=== PATIENT | female | born 1940 | race Caucasian/White ===

== ENCOUNTER 2019-07-08 14:40 | Inpatient (IN) | payer OTHER ==
[2019-07-08 16:00] LABS: Absolute Lymphocytes (CBC) 7.4 K/uL (0.7-4.9); Lymphocytes % 56.9 % (15.3-44.8); MPV 7.7 fL (7.6-11.3); RBC Red Blood Cell Count 4.64 M/uL (3.86-4.86)
--- NOTE | 2019-07-08 16:05 | RAD REPORT ---
EXAM DESCRIPTION: RAD - Chest Pa And Lat (2 Views) - 07/08/2019 3:58 pm CLINICAL HISTORY: pyelonephritis, tachycardia Chest pain. COMPARISON: CHEST PA AND LAT 2 VIEW dated 05/02/2014; CHEST PA AND LAT 2 VIEW dated 05/22/2009; CHEST PA AND LAT 2 VIEW dated 03/18/2008 FINDINGS: The lungs are clear. The heart is normal in size. No displaced fractures. IMPRESSION: No acute finding suspected.
--- NOTE | 2019-07-08 16:08 | RAD REPORT ---
EXAM DESCRIPTION: CT - Stone Protocol - 07/08/2019 3:50 pm CLINICAL HISTORY: Flank pain. CT SCAN Abdomen, without contrast. COMPARISON: No comparisons TECHNIQUE: Axial images were obtained without oral or IV contrast. Lack of contrast limits solid org an and vascular assessment. The [id number] spans the entirety of the system partially obscuring uppermost abdomen and lung bases. Coronal reformatted images were obtained and reviewed. All CT scans are performed using dose optimization technique as appropriate and may include automated exposure control or mA/KV adjustment according to patient size. FINDINGS: The lower lung dunn are clear. Fatty liver. Small axial hiatal hernia.Splenic size is normal. The pancreas and adrenal glands are no rmal. No pathologic lymphadenopathy in the abdomen or pelvis. No urinary tract stones or obstructive uropathy. Right kidney appears prominent in size without hydro nephrosis. No bowel obstruction, free air, free fluid or abscess. The appendix is not identified as a discrete s tructure, however, no secondary findings of appendicitis are identified. Scattered colonic diverticul osis. No diverticulitis. No significant bony abnormality. IMPRESSION: No urinary tract stones or obstructive uropathy. Prominent right renal size could indicate inflammation/infection. Fatty liver.
[2019-07-08 16:16] LABS: Albumin 3.7 g/dL (3.4-5.0); Bilirubin Total 0.3 mg/dL (0.2-1.0); Magnesium 2.2 mg/dL (1.8-2.4); Potassium 4.1 mmol/L (3.5-5.1); Protein, Total 7.9 g/dL (6.4-8.2)
[2019-07-08] MEDS: CEFTRIAXONE/SWI 1gm 1 GM/10 ML SYR IVP SCH ×2 (17:07→17:10)
[2019-07-08] MEDS: NA CHLORIDE 0.9% 1,000 ML IV SCH (17:08)
[2019-07-08 17:19] LABS: Urine Appearance CLOUDY; Urine Bilirubin NEGATIVE (NEG); Urine Blood NEGATIVE (NEG); Urine Color ORANGE; Urine Glucose NEGATIVE (NEG); Urine Protein TRACE (NEG); Urine pH 5.5 (5.0-7.0)
[2019-07-08 17:44] VITALS: BMI 34.4
[2019-07-08 17:44] LABS: Urine Bacteria 20-50 /HPF (<20); Urine Culture Reflex Order NOT NEEDED; Urine RBC <5 /HPF (NONE SEEN)
[2019-07-08] MEDS ORDERED: ALPRAZOLAM 1 MG TABLET PO PRN (18:44)
[2019-07-08] MEDS ORDERED: GLUCAGON 1 MG/VIAL IM PRN (19:56)
[2019-07-08] MEDS ORDERED: D50W 25 GM/50 ML SYRINGE/VIAL IV PRN (19:56)
[2019-07-08] MEDS ORDERED: CALCIUM CARBONATE 750 MG PO PRN (19:57)
[2019-07-08] MEDS: PANTOPRAZOLE 40MG TABLET PO SCH (20:26)
[2019-07-08] MEDS: ALPRAZOLAM 1 MG PO SCH (21:00)
[2019-07-08] MEDS: CARVEDILOL 6.25 MG PO SCH (21:00)
[2019-07-08] MEDS: INSULIN -REGULAR HUMAN 50 UNIT/0.5 ML ML SQ SCH (21:00)
[2019-07-08] MEDS: PRESERVISION AREDS PO SCH (21:00)
[2019-07-08] MEDS: DULOXETINE HCL 60 MG PO SCH (21:00)
--- NOTE | 2019-07-08 21:31 | HP ---
Date of Admission: 07/08/2019 Chief Complaint: Urinary tract infection. History Of Present Illness: This is a 78-year-old pleasant female patient who called my office today and subsequently was seen with following complaints. Patient reported that for approximately last 1 month or more, she is having urinary frequency or urgency, some pain with urination. Over period of time, her urine has gotten more and more cloudy and now it is thick and very cloudy looking with a s young odor to it. Denies any blood in urine. No prior history of kidney stone. Lately, she is havi ng problem with pain in the right posterior flank, having chills, feels very weak tired and dizzy whe n she gets up and walks around for about last 2-3 days. Also couple days ago, she almost fell down b ecause she was feeling very weak when she was walking. There was no fall no injury. After I evaluat ed her, decision was made to admit her to hospital. Allergies: NO KNOWN ALLERGIES. Medications: Alprazolam 1 mg daily, amlodipine 5 mg daily, atorvastatin 10 mg daily, Caltrate plus D 1 tablet 2 times a day, carvedilol 6.25 mg 2 times a day, duloxetine 60 mg p.o. 2 times a day, losar diego 25 mg daily, Janumet XR 100/1000 mg 1 tablet daily with evening meal, omeprazole 40 mg daily. Review of Systems: Constitutional: As mentioned above, significant for chills, fatigue, malaise and weakness. GI: Significant for abdominal pain. Genitourinary: Significant for burning sensation with urination, frequency, urgency odor and back pa in. Neurology: Significant for dizziness. All other systems reviewed and negative. Past Medical History: Significant for hypertension, hyperlipidemia, type 2 diabetes mellitus, gastro esophageal reflux disease, diverticulosis, depression. Past Surgical History: Gastric band placement, cholecystectomy, appendectomy, tubal ligation, carpal tunnel release surgery, knee surgery. Family History: Father had throat cancer. Mother, rheumatoid arthritis, coronary artery disease. Social History: Negative for smoking, alcohol use. Physical Examination: Vital Signs: At office today, blood pressure 138/87, pulse 106, respiratory rate 16, temperature 97. 4. Weight 201.2 pounds, height 64 inches. General: Awake, alert, oriented, not in distress. HEENT: Head atraumatic, normocephalic. Conjunctivae nonerythematous. Sclerae white. Mouth, no thr ush or edema noted. Ears/Nose, no mass, lesion, discharge noted. Neck: Supple. No JVD, lymph nodes, bruit, thyromegaly noted. Lungs: Bilateral good equal air entry. Clear to auscultation. No rhonchi. No rales. Heart: Normal heart sounds, no murmur or gallop. Abdomen: Has some right-sided mid anterior abdominal tenderness, otherwise abdomen soft. Bowel soun ds normoactive. No guarding, rigidity, distention. No hepatosplenomegaly. No bruit. Extremities: No leg edema. No calf tenderness. Skin: No rash, ulcer, cellulitis. Lymphatics: No lymph node enlargement in neck, supraclavicular, infraclavicular region. Neuro: No focal neurological deficit. Chest: Unremarkable. External Genitalia: Deferred. Rectal: Deferred. Laboratory Data: White count 13.1, hemoglobin 13.8, platelets 253. Urinalysis, positive for nitrite 3+, leukocyte esterase 20-50, wbc bacteria 20-50. Sodium 138, potassium 4.1, chloride 101, bicarb 3 1, BUN 14, creatinine 0.86, glucose 209. Liver function tests unremarkable. Lactic acid level 1.6. Procalcitonin less than 0.05. Chest x-ray shows no acute cardiopulmonary changes noted. CAT scan o f abdomen and pelvis done per kidney stone protocol shows no evidence of kidney stone or obstructive uropathy. Prominent right-sided renal size could indicate inflammation or infection. Presence of fa tty liver disease. Impression: 1.Acute pyelonephritis. 2.Hypertension. 3.Hyperlipidemia. 4.Diabetes mellitus, type 2. 5.Gastroesophageal reflux disease. 6.Diverticulosis. 7.Depression. Plan: Admit patient to hospital for further evaluation and management of this problem. Patient is a ppropriate for inpatient and is expected to spend 2 midnights in hospital. We will continue home med ications per order. Blood culture, urine culture was done. We will start empiric antibiotics. We w ill go ahead and put on regular diet with sliding scale insulin for diabetes control. I will see her tomorrow for followup and we will continue current empiric antibiotic depending on her urine culture results. We will decide about culture specific antibiotics. Home medications will be continued per order. KHAI/GABRIEL Voice ID: [id number]
[2019-07-09] MEDS ORDERED: ACETAMINOPHEN 500 MG TAB PO PRN (00:48)
[2019-07-09] MEDS: NA CHLORIDE 0.9% 1,000 ML IV SCH ×2 (01:14→08:16)
[2019-07-09] MEDS: PANTOPRAZOLE 40MG TABLET PO SCH (06:23)
[2019-07-09] MEDS: INSULIN -REGULAR HUMAN 50 UNIT/0.5 ML ML SQ SCH ×4 (07:30→21:00)
[2019-07-09] MEDS ORDERED: METFORMIN HCL PO SCH ×2 (08:00→17:00)
[2019-07-09] MEDS ORDERED: SITAGLIPTIN PHOS PO SCH ×2 (08:00→17:00)
[2019-07-09] MEDS: CEFTRIAXONE/SWI 1gm 1 GM/10 ML SYR IVP SCH ×2 (08:16→21:29)
[2019-07-09] MEDS: CARVEDILOL 6.25 MG PO SCH ×2 (09:25→21:30)
[2019-07-09] MEDS: PRESERVISION AREDS PO SCH ×2 (09:25→21:30)
[2019-07-09] MEDS: AMLODIPINE 5 MG PO SCH (09:26)
[2019-07-09] MEDS: LOSARTAN POTASSIUM 25 MG PO SCH (09:26)
[2019-07-09] MEDS: DULOXETINE HCL 60 MG PO SCH ×2 (09:26→21:31)
--- NOTE | 2019-07-09 11:22 | PN ---
Date of Progress Note: 07/09/2019 Subjective: Patient was seen this morning for followup. She was sitting at bedside, feeling much be tter, happy, smiling. Denies any flank pain. No complaints reported overnight and states that her u rine still is cloudy, but overall much better than before as she reports. Objective: Vital Signs: Reviewed. HEENT: Unremarkable. Lungs: Clear to auscultation. Heart: Sounds normal. Abdomen: Soft. Bowel sounds normal. No guarding, rigidity, tenderness, or distention. Extremities: No leg edema. Impression: 1.Acute pyelonephritis. 2.Type 2 diabetes mellitus. 3.Hypertension. Plan: We will continue current IV antibiotics. Urine culture is growing gram-negative rods. Defini te identification and sensitivity pending. Blood culture negative so far. We will hopefully get fin nd urine culture report tomorrow and then we can make a decision about discharge, when to go home wit h culture specific antibiotics. KHAI/MODL Voice ID: [id number] Report ID: [id number]
--- NOTE | 2019-07-09 14:39 | EKG ---
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
[2019-07-09] MEDS ORDERED: ENOXAPARIN 40 MG/0.4 ML SQ SCH (17:00)
[2019-07-09] MEDS ORDERED: [UNRECOGNIZED DRUG - OTHER] PO SCH (17:00)
[2019-07-09] MEDS ORDERED: ATORVASTATIN 10 MG TAB PO SCH (21:00)
[2019-07-09] MEDS: ALPRAZOLAM 1 MG PO SCH (21:29)
[2019-07-10] MEDS: PANTOPRAZOLE 40MG TABLET PO SCH (06:03)
[2019-07-10 06:22] LABS: Absolute Lymphocytes (CBC) 5.2 K/uL (0.7-4.9); Basophils % 0.4 % (0-1.3); Hematocrit 38.5 % (36.0-45.0); Lymphocytes % 53.9 % (15.3-44.8); MPV 7.5 fL (7.6-11.3)
[2019-07-10 06:42] VITALS: O2SAT 93
[2019-07-10 07:15] LABS: Magnesium 2.2 mg/dL (1.8-2.4)
[2019-07-10 07:27] LABS: Blood Morphology Comment NOT SEEN (NOT SEEN); Platelet Estimate ADEQ
[2019-07-10] MEDS: INSULIN -REGULAR HUMAN 50 UNIT/0.5 ML ML SQ SCH (07:30)
[2019-07-10] MEDS: CARVEDILOL 6.25 MG PO SCH (08:43)
[2019-07-10] MEDS: CEFTRIAXONE/SWI 1gm 1 GM/10 ML SYR IVP SCH (08:43)
[2019-07-10] MEDS: DULOXETINE HCL 60 MG PO SCH (08:44)
[2019-07-10] MEDS: PRESERVISION AREDS PO SCH (08:45)
[2019-07-10] MEDS: AMLODIPINE 5 MG PO SCH (08:46)
[2019-07-10] MEDS: LOSARTAN POTASSIUM 25 MG PO SCH (08:46)
[2019-07-10 09:19] VITALS: BP 144/65; TEMP 98.3
--- NOTE | 2019-07-10 13:30 | DS ---
Date of Discharge: 07/10/2019 Disposition: Patient was discharged to go home. Physical Examination: HEENT: Unremarkable. Lungs: Clear to auscultation. Heart: Sounds normal. Abdomen: Soft. Bowel sounds normal. No guarding, rigidity, tenderness, distention. Extremities: No leg edema. Laboratory Data: Upon admission, white count 13.1, hemoglobin 13.8, platelets 253. Repeat white cou nt today 9.6, hemoglobin 12.8, platelets 203. Last chemistry today; sodium 141, potassium 4, chlorid e 107, bicarb 27, BUN 10, creatinine 0.70, glucose 172, hemoglobin A1c 8.2, and she is aware of uncon trolled diabetes. Urine culture is growing E coli. Hospital Course: A 78-year-old pleasant female patient, admitted to the hospital with urinary tract infection problem. Please see dictated H and P for more information. The patient was evaluated at t office. She was admitted to the hospital with acute pyelonephritis problem. Please see dictated H and P for more information. Patient was admitted to the hospital. IV antibiotic and IV fluid were started. She was started on IV Rocephin. Home medications were continued. Urine culture results c quan back today indicating she was growing E coli sensitive to multiple antibiotics including ceftriax one that she was on and multiple other IV and oral antibiotics. Symptomatically, patient is doing we ll. Her cloudy urine has resolved most of the time and flank pain also has improved. Patient will b e discharged to go home in stable condition. Final Diagnoses: 1.Acute pyelonephritis. 2.Hypertension. 3.Hyperlipidemia. 4.Diabetes mellitus, type 2, with hyperglycemia. 5.Gastroesophageal reflux disease. 6.Diverticulosis. 7.Depression. Discharge Medication And Instructions: 1.Continue all prior home medications. 2.Bactrim DS 1 tablet by mouth 2 times a day for 10 days. 3.Follow up with my office next week on , which is 07/15/2019. KHAI/MODL Voice ID: [id number] Report ID: [id number]
== END 2019-07-10 11:41 | disposition home or self-care (01) | DRG 690 ==
LOC: 2ND 14:40
PROVIDERS: ADMIT Internal Medicine; ATTEND Internal Medicine
DX: N10 Acute pyelonephritis (principal); B96.20 Unspecified Escherichia coli [E. coli] as the cause of diseases classified elsewhere; I10 Essential (primary) hypertension; E78.5 Hyperlipidemia, unspecified; E11.65 Type 2 diabetes mellitus with hyperglycemia; K21.9 Gastro-esophageal reflux disease without esophagitis; F32.9 Major depressive disorder, single episode, unspecified; K57.90 Diverticulosis of intestine, part unspecified, without perforation or abscess without bleeding; Z79.899 Other long term (current) drug therapy; Z90.49 Acquired absence of other specified parts of digestive tract; Z98.51 Tubal ligation status; Z98.84 Bariatric surgery status
CPT/HCPCS: 36415; 71046; 74176; 76377; 80048; 80053; 81001; 82947; 83036; 83605; 83735; 84145; 85025; 87040; 87077; 87086; 87088; 87186; 93005; J0696; J1650; J7030

== ENCOUNTER 2021-04-11 10:19 | Emergency (ER) | payer OTHER ==
--- OUTSIDE RECORDS SUMMARY | 2021-04-11 10:24 | XMS REPORT | Continuity of Care Document ---
:1940 Author Organization [facility] Address [address] [place] [address] [address] [place] [address] Care Team Providers Name Role Phone Yan_W Attending Clinician Unavailable Abel_W Admitting Clinician Unavailable Payers Payer Name Policy Type Policy Number Effective Date Expiration Date [employer] (MEDICARE [id number] 2013 REPLACEMENT PPO) 00:00:00 Problems This patient has no known problems. Allergies, Adverse Reactions, Alerts This patient has no known allergies or adverse reactions. Social History Smoking Status Start Date Stop Date Source Never Smoker [facility] Medications Ordered Filled Start Stop Current Ordering Indication Dosage Frequency Signature Comments Components Source Medication Medication Date Date Medication? Clinician (SIG) Name Name glipizide glipizide No glipizide [facility] ER 2.5 mg ER 2.5 mg ER 2.5 mg da tablet, tablet, tablet, Medica l extended extended extended Amanda up release 24 release 24 release 24 hr TAKE 1 hr TAKE 1 hr TAKE 1 TABLET BY TABLET BY TABLET BY MOUTH EVERY MOUTH EVERY MOUTH DAY WITH DAY WITH EVERY DAY BREAKFAST BREAKFAST WITH BREAKFAST Janumet XR Janumet XR No Janumet XR [facility] 100 100 100 da mg-1,000 mg mg-1,000 mg mg-1,000 Medical tablet,exte tablet,exte mg G roup nded nded tablet,ext release release ended TAKE 1 TAKE 1 release TABLET BY TABLET BY TAKE 1 MOUTH DAILY MOUTH DAILY TABLET BY IN EVENING IN EVENING MOUTH WITH MEAL WITH MEAL DAILY IN EVENING WITH MEAL losartan 25 losartan 25 No losartan [facility] mg tablet mg tablet 25 mg da TAKE 1 TAKE 1 tablet Medical TABLET BY TABLET BY TAKE 1 Amanda up MOUTH EVERY MOUTH EVERY TABLET BY DAY DAY MOUTH EVERY DAY alprazolam alprazolam No alprazolam [facility] 1 mg tablet 1 mg tablet 1 mg d a TAKE 1 TAKE 1 tablet Medical TABLET BY TABLET BY TAKE 1 Amanda up MOUTH TWICE MOUTH TWICE TABLET BY A DAY A DAY MOUTH NEEDED FOR NEEDED FOR TWICE A ANXIETY ANXIETY DAY NEEDED FOR ANXIETY amlodipine amlodipine No amlodipine [facility] 5 mg tablet 5 mg tablet 5 mg d a TAKE 1 TAKE 1 tablet Medical TABLET BY TABLET BY TAKE 1 Amanda up MOUTH EVERY MOUTH EVERY TABLET BY DAY DAY MOUTH EVERY DAY atorvastati atorvastati No atorvastat [facility] n 10 mg n 10 mg in 10 mg da tablet TAKE tablet TAKE tablet Medical 1 TABLET BY 1 TABLET BY TAKE 1 Group MOUTH EVERY MOUTH EVERY TABLET BY DAY DAY MOUTH EVERY DAY carvedilol carvedilol No carvedilol [facility] 12.5 mg 12.5 mg 12.5 mg da tablet TAKE tablet TAKE tablet Medical 1 TABLET BY 1 TABLET BY TAKE 1 Group MOUTH TWICE MOUTH TWICE TABLET BY A DAY A DAY MOUTH TWICE A DAY duloxetine duloxetine No duloxetine [facility] 60 mg 60 mg 60 mg da capsule,del capsule,del capsule,de Medical ayed ayed layed Group release release release TAKE 1 TAKE 1 TAKE 1 CAPSULE BY CAPSULE BY CAPSULE BY MOUTH TWICE MOUTH TWICE MOUTH A DAY A DAY TWICE A DAY Vital Signs Vital Name Observation Time Observation Value Comments Source BP Diastolic 2020-05-30 00:00:00 95 mm[Hg] [facility] Height 2020-05-30 00:00:00 64 [in_i] [facility] BMI (Body Mass 2020-05-30 00:00:00 36.2 kg/m2 [facility] business segment manager Medical Index) Group BP Systolic 2020-05-30 00:00:00 171 mm[Hg] [facility] Body Weight 2020-05-30 00:00:00 210.8 [lb_av] [facility] Procedures Procedure Date / Time Performing Clinician Source Performed Repair of Meniscus [facility] Bilateral Tubal Ligation [facility] Hysterectomy [facility] Removal of Gastric Band [facility] Laparoscopic Adjustable [facility] Plan of Care Planned Activity Planned Date Details Comments Source Future Appointment 2021-05-30 Reid Roman, [facility] 13:15:00 [facility]; Group [address], [place] [address] Encounters Start End Encounter Admission Attending Care Care Encounter Source Date/Time Date/Time Type Type Clinicians Facility Department ID 2020-05-31 2020-05-31 Outpatient Abel_W [facility] [id number] [facility] 09:45:00 09:45:00 0224 [facility] 2020-05-30 2020-05-30 Outpatient Yan_W [facility] [id number] [facility] 05:01:00 05:01:00 0223 [facility] 2020-05-30 2020-05-30 Reid Roman [facility] [place] - [id number] [facility] 00:00:00 00:00:00 MD: Félix Manriquez [facility] [address], [facility] [place] [facility] [place] [address] [place] Ph. 2020-05-26 2020-05-26 Outpatient Abel_W [facility] [id number] [place] 12:31:00 12:31:00 0219 [facility] 2020-05-26 2020-05-26 Outpatient Yan_W [facility] [id number] [facility] 12:31:00 12:31:00 022 [facility] Results This patient has no known results.
[2021-04-11 11:08] LABS: Absolute Lymphocytes (CBC) 8.6 K/uL (0.7-4.9); Lymphocytes % 56.2 % (15.3-44.8); MPV 7.7 fL (7.6-11.3); RBC Red Blood Cell Count 4.84 M/uL (3.86-4.86)
[2021-04-11] MEDS ORDERED: ONDANSETRON 4 MG/2 ML VIAL ONE (11:12)
[2021-04-11] MEDS ORDERED: NA CHLORIDE 0.9% 1,000 ML ONE ×2 (11:12→12:30)
[2021-04-11] MEDS ORDERED: LORazepam 2 MG/ML VIAL ONE (11:12)
[2021-04-11 11:26] LABS: Magnesium 1.9 mg/dL (1.8-2.4)
[2021-04-11 12:07] LABS: Blood Morphology Comment NOT SEEN (NOT SEEN); Platelet Estimate ADEQ
[2021-04-11] MEDS ORDERED: DIAZEPAM 10 MG/2 ML INJ SYRINGE ONE (12:30)
[2021-04-11 12:43] LABS: SARS-COV-2 RT PCR NEGATIVE (NEGATIVE)
--- NOTE | 2021-04-11 13:48 | EDPHYS ---
Physician Documentation [facility] Name: Alice Viera Age: 80 yrs Sex: Female : 1940 Arrival Date: 04/11/2021 Time: 10:20 Bed 6 Private MD: ED Physician Kwadwo Brumfield HPI: 04/11 10:52 This 80 yrs old Female presents to ER via Wheelchair with complaints of Numbness, High rn Blood Pressure, nausea. 10:53 The patient presents to the emergency department with nausea, vomiting, diarrhea. rn Onset: The symptoms/episode began/occurred 5 day(s) ago. Possible causes: Missed doses of Xanax. The symptoms are aggravated by food , The symptoms are alleviated by nothing. Associated signs and symptoms: Pertinent positives: diarrhea, nausea, vomiting, Pertinent negatives: fever, GI bleeding. Severity of symptoms: At their worst the symptoms were moderate in the emergency department the symptoms are unchanged. The patient has not experienced similar symptoms in the past. The patient has not recently seen a physician. Patient and daughter report generalized weakness, anxiety, nausea/vomiting/diarrhea for 5 days. Reports was under more stress lately over the holidays and ended up taking extra of her Xanax leading her to run out early. Ran out of Xanax 6 or 7 days ago and symptoms began shortly after that. Symptoms slowly getting worse. Patient reports feels anxious and having trouble sleeping. Reports high blood pressure. Reports numbness and tingling all over her body. Cannot get a refill until the ninth.. Historical: - Allergies: 10:43 No Known Allergies; jd3 - PMHx: 10:43 CLL; Diabetes mellitus; jd3 - PSHx: 10:43 stomach banding and unbanding; tubal ligation; Total abdominal hysterectomy; jd3 - Immunization history:: Adult Immunizations up to date, Client reports receiving the 2nd dose of the Covid vaccine, Flu vaccine is up to date. - Social history:: Smoking status: Patient denies any tobacco usage or history of. - Family history:: not pertinent. - Hospitalizations: : No recent hospitalization is reported. ROS: 10:53 Constitutional: Negative for fever, chills, and weight loss, Eyes: Negative for injury, rn pain, redness, and discharge, Neck: Negative for injury, pain, and swelling, Cardiovascular: Positive for palpitations Respiratory: Negative for shortness of breath, cough, wheezing, and pleuritic chest pain, Abdomen/GI: Positive for nausea/vomiting/diarrhea MS/Extremity: Negative for injury and deformity, Skin: Negative for injury, rash, and discoloration, Neuro: Positive for generalized numbness and tingling, negative for focal weakness, negative for headache Exam: 10:53 Constitutional: This is a well developed, well nourished patient who is awake, alert, rn anxious Head/Face: Normocephalic, atraumatic. Eyes: Periorbital areas with no swelling, redness, or edema. ENT: Dry mucous membranes, positive for tongue fasciculations Cardiovascular: Tachycardic, regular Respiratory: Mild tachypnea, speaking full sentences Abdomen/GI: Soft, non-tender Skin: Warm, dry, no cellulitis MS/ Extremity: Pulses equal, no cyanosis. Neurovascular intact. Full, normal range of motion. Equal circumference. Neuro: Awake and alert, GCS 15, oriented to person, place, time, and situation. Cranial nerves II-XII grossly intact. Motor strength 5/5 in all extremities. Sensory grossly intact. Cerebellar exam normal. Vital Signs: 10:45 BP 172 / 93; Pulse 113; Resp 20 S; Temp 97.8(TE); Pulse Ox 98% on R/A; Weight 90.72 kg jd3 (R); Height 5 ft. 4 in. (162.56 cm) (R); Pain 0/10; 12:48 BP 151 / 87; Pulse 100; Resp 19 S; Pulse Ox 95% on R/A; jd3 14:29 BP 162 / 74; Pulse 94; Resp 17 S; Pulse Ox 96% on R/A; jd3 10:45 Body Mass Index 34.33 (90.72 kg, 162.56 cm) jd3 MDM: 10:25 Patient medically screened. rn 13:43 Differential diagnosis: viral gastroenteritis, gastroenteritis, benzo withdrawal. Data rn reviewed: vital signs, nurses notes, lab test result(s), EKG, and as a result, I will discharge patient. Counseling: I had a detailed discussion with the patient and/or guardian regarding: the historical points, exam findings, and any diagnostic results supporting the discharge/admit diagnosis, lab results, the need for outpatient follow up, to return to the emergency department if symptoms worsen or persist or if there are any questions or concerns that arise at home. Response to treatment: the patient's symptoms have markedly improved after treatment, the patient's condition has returned to base line, the patient is now symptom free, patient is well hydrated. and as a result, I will discharge patient. Special discussion: I discussed with the patient/guardian in detail that at this point there is no indication for admission to the hospital. It is understood, however, that if the symptoms persist or worsen the patient needs to return immediately for re-evaluation. Based on the history and exam findings, there is no indication for further emergent testing or inpatient evaluation. I discussed with the patient/guardian the need to see the primary care provider for further evaluation of the symptoms. ED course: Patient much better, back to baseline, vitals responded well to fluids and benzos here. No acute findings in blood work or EKG. Symptoms most consistent with benzo withdrawal as symptoms began a day or 2 after cessation and marked improvement after benzo administration here. Can get her refill on the ninth will prescribe once a day Xanax for the next 3 days only. Return precautions given and understood. Patient states feels great and wants to go home.. 04/11 10:36 Order name: CBC with Diff; Complete Time: 13:08 rn 04/11 10:36 Order name: Basic Metabolic Panel; Complete Time: 11:57 rn 04/11 10:36 Order name: Magnesium; Complete Time: 11:57 rn 04/11 10:36 Order name: COVID-19/FLU A+B (Document "Date of Onset" if Symptomatic); Complete Time: rn 13:04/11 10:36 Order name: Procalcitonin; Complete Time: 13:08 rn 04/11 12:07 Order name: Manual Differential; Complete Time: 13:08 EDMS 04/11 10:36 Order name: IV Start; Complete Time: 11:01 rn 04/11 10:36 Order name: EKG; Complete Time: 10:37 rn 04/11 10:36 Order name: EKG - Nurse/Tech; Complete Time: 11:01 rn Administered Medications: 11:17 Drug: Ativan (LORazepam) 1 mg Route: IVP; Site: right antecubital; jd3 12:00 Follow up: Response: No adverse reaction jd3 11:17 Drug: Zofran (Ondansetron) 4 mg Route: IVP; Site: right antecubital; jd3 12:00 Follow up: Response: No adverse reaction jd3 11:17 Drug: NS 0.9% 1000 ml Route: IV; Rate: 1000 ml; Site: right antecubital; jd3 12:00 Follow up: Response: No adverse reaction; IV Status: Completed infusion jd3 12:04 CANCELLED (Duplicate Order): Valium (diazepam) 5 mg IVP once rn 12:37 Drug: NS 0.9% 1000 ml Route: IV; Rate: 1000 ml; Site: right antecubital; jd3 13:30 Follow up: Response: No adverse reaction; IV Status: Completed infusion jd3 12:37 Drug: Valium (diazepam) 2 mg Route: IVP; Site: right antecubital; jd3 13:30 Follow up: Response: No adverse reaction jd3 Disposition Summary: 04/11/21 13:47 Discharge Ordered Location: Home rn Problem: new rn Symptoms: have improved rn Condition: Stable rn Diagnosis - Sedative, hypnotic or anxiolytic dependence with withdrawal, uncomplicated rn - Dehydration rn Followup: rn - With: Private Physician - When: As needed - Reason: Recheck today's complaints, Re-evaluation by your physician Discharge Instructions: - Discharge Summary Sheet rn - Dehydration, Adult rn - Benzodiazepine Withdrawal rn Forms: - Medication Reconciliation Form rn - Thank You Letter rn - Antibiotic clinical nursing intern - Prescription Opioid Use rn Prescriptions: - Xanax 1 mg Oral Tablet - take 2 tablet by ORAL route At bedtime for 3 days; 6 tablet; Refills: 0, rn Product Selection Permitted Signatures: Dispatcher [employer] EDKwadwo Torres MD MD rn Davies, Jonathon, RN RN jd3 Corrections: (The following items were deleted from the chart) 11:14 10:53 Constitutional: This is a well developed, well nourished patient who is awake, rn alert, anxious rn 11:15 10:53 Constitutional: This is a well developed, well nourished patient who is awake, rn alert, anxious Head/Face: Normocephalic, atraumatic. Eyes: Periorbital areas with no swelling, redness, or edema. ENT: Dry mucous membranes Cardiovascular: Tachycardic, regular Respiratory: Mild tachypnea, speaking full sentences Abdomen/GI: Soft, non-tender Skin: Warm, dry, no cellulitis MS/ Extremity: Pulses equal, no cyanosis. Neurovascular intact. Full, normal range of motion. Equal circumference. Neuro: Awake and alert, GCS 15, oriented to person, place, time, and situation. Cranial nerves II-XII grossly intact. Motor strength 5/5 in all extremities. Sensory grossly intact. Cerebellar exam normal. rn 12:04 12:04 Valium (diazepam) 5 mg IVP once ordered. rn rn
--- NOTE | 2021-04-11 13:48 | ER ---
Nurse's Notes [facility] Name: Alice Viera Age: 80 yrs Sex: Female : 1940 Arrival Date: 04/11/2021 Time: 10:20 Bed 6 Private MD: Diagnosis: Sedative, hypnotic or anxiolytic dependence with withdrawal, uncomplicated;Dehydration Presentation: 04/11 10:42 Chief complaint: Patient states: "I have been having nausea and feeling like my feet jd3 and hands are numb since like Friday. I have been out of my Xanax and I think I might just be having withdraws from not renu able to take that medication that I have been on for a very long time.". Coronavirus screen: At this time, the client does not indicate any symptoms associated with coronavirus-19. Ebola Screen: Patient negative for fever greater than or equal to 101.5 degrees Fahrenheit, and additional compatible Ebola Virus Disease symptoms. Initial Sepsis Screen: Does the patient meet any 2 criteria? No. Patient's initial sepsis screen is negative. Does the patient have a suspected source of infection? No. Patient's initial sepsis screen is negative. Risk Assessment: Do you want to hurt yourself or someone else? Patient reports no desire to harm self or others. Onset of symptoms was April 07, 2021. 10:42 Acuity: EARNEST 3 jd3 10:42 Method Of Arrival: Wheelchair jd3 Historical: - Allergies: 10:43 No Known Allergies; jd3 - PMHx: 10:43 CLL; Diabetes mellitus; jd3 - PSHx: 10:43 stomach banding and unbanding; tubal ligation; Total abdominal hysterectomy; jd3 - Immunization history:: Adult Immunizations up to date, Client reports receiving the 2nd dose of the Covid vaccine, Flu vaccine is up to date. - Social history:: Smoking status: Patient denies any tobacco usage or history of. - Family history:: not pertinent. - Hospitalizations: : No recent hospitalization is reported. Screenin:29 Abuse screen: Denies threats or abuse. Nutritional screening: No deficits noted. jd3 Tuberculosis screening: No symptoms or risk factors identified. Fall Risk Gait- Normal/Bed Rest/Wheelchair (0 pts) Mental Status- Oriented to own ability (0 pts). Total Mantilla Fall Scale indicates No Risk (0-24 pts). Assessment: 10:30 General: Appears in no apparent distress. uncomfortable, Behavior is calm, cooperative, jd3 appropriate for age, anxious. Pain: Denies pain. Pain does not radiate. Pain began years ago. pain reported. Neuro: Level of Consciousness is awake, alert, obeys commands, Oriented to person, place, time, situation. Cardiovascular: Denies chest pain, Heart tones present Capillary refill < 3 seconds Patient's skin is warm and dry. Rhythm is irregular. Respiratory: Reports shortness of breath on exertion Airway is patent Respiratory effort is even, unlabored, Respiratory pattern is regular, symmetrical, Breath sounds are clear bilaterally. GI: Abdomen is round non-distended, Abd is soft and non tender X 4 quads. Reports nausea, vomiting. : No signs and/or symptoms were reported regarding the genitourinary system. EENT: No signs and/or symptoms were reported regarding the EENT system. Derm: Skin is intact, Skin is dry, Skin is normal, Skin temperature is warm. Musculoskeletal: Circulation, motion, and sensation intact. Range of motion: intact in all extremities. 11:30 Reassessment: Patient appears in no apparent distress at this time. No changes from jd3 previously documented assessment. Patient and/or family updated on plan of care and expected duration. Pain level reassessed. Patient is alert, oriented x 3, equal unlabored respirations, skin warm/dry/pink. 12:30 Reassessment: Patient appears in no apparent distress at this time. No changes from jd3 previously documented assessment. Patient and/or family updated on plan of care and expected duration. Pain level reassessed. Patient is alert, oriented x 3, equal unlabored respirations, skin warm/dry/pink. 14:29 Reassessment: Patient appears in no apparent distress at this time. Patient and/or [facility] family updated on plan of care and expected duration. Pain level reassessed. Patient is alert, oriented x 3, equal unlabored respirations, skin warm/dry/pink. Patient denies pain at this time. Patient states feeling better. Vital Signs: 10:45 BP 172 / 93; Pulse 113; Resp 20 S; Temp 97.8(TE); Pulse Ox 98% on R/A; Weight 90.72 kg jd3 (R); Height 5 ft. 4 in. (162.56 cm) (R); Pain 0/10; 12:48 BP 151 / 87; Pulse 100; Resp 19 S; Pulse Ox 95% on R/A; jd3 14:29 BP 162 / 74; Pulse 94; Resp 17 S; Pulse Ox 96% on R/A; jd3 10:45 Body Mass Index 34.33 (90.72 kg, 162.56 cm) jd3 ED Course: 10:20 Patient arrived in ED. ds1 10:25 Kwadwo Brumfield MD is Attending Physician. rn 10:38 Israel Price RN is Primary Nurse. jd3 10:43 Triage completed. jd3 10:45 Arm band placed on. jd3 11:30 Inserted saline lock: 20 gauge in right antecubital area, using aseptic technique. jd3 Blood collected. 12:30 Patient maintains SpO2 saturation greater than 95% on room air. jd3 14:29 No provider procedures requiring assistance completed. IV discontinued, intact, jd3 bleeding controlled, No redness/swelling at site. Pressure dressing applied. 14:30 Patient has correct armband on for positive identification. Bed in low position. Call jd3 light in reach. Side rails up X 1. Adult w/ patient. online merchandising specialist on. Pulse ox on. NIBP on. Administered Medications: 11:17 Drug: Ativan (LORazepam) 1 mg Route: IVP; Site: right antecubital; jd3 12:00 Follow up: Response: No adverse reaction jd3 11:17 Drug: Zofran (Ondansetron) 4 mg Route: IVP; Site: right antecubital; jd3 12:00 Follow up: Response: No adverse reaction jd3 11:17 Drug: NS 0.9% 1000 ml Route: IV; Rate: 1000 ml; Site: right antecubital; jd3 12:00 Follow up: Response: No adverse reaction; IV Status: Completed infusion jd3 12:04 CANCELLED (Duplicate Order): Valium (diazepam) 5 mg IVP once rn 12:37 Drug: NS 0.9% 1000 ml Route: IV; Rate: 1000 ml; Site: right antecubital; jd3 13:30 Follow up: Response: No adverse reaction; IV Status: Completed infusion jd3 12:37 Drug: Valium (diazepam) 2 mg Route: IVP; Site: right antecubital; jd3 13:30 Follow up: Response: No adverse reaction jd3 Outcome: 13:47 Discharge ordered by . rn 14:30 Discharged to home ambulatory, via wheelchair, with family. jd3 14:30 Condition: stable 14:30 Discharge instructions given to patient, family, Instructed on discharge instructions, follow up and referral plans. medication usage, Demonstrated understanding of instructions, follow-up care, medications, Prescriptions given X 1. 14:31 Patient left the ED. jd3 Signatures: Leanna Wilson ds1 Kwadwo Brumfield MD MD rn Davies, Jonathon, RN RN jjerad Corrections: (The following items were deleted from the chart) 14:30 12:30 Inserted saline lock: 20 gauge in right antecubital area, using aseptic jd3 technique. Blood collected. jd3
[2021-04-11 14:37] VITALS: TEMP 97.8
[2021-04-11 14:40] VITALS: BP 162/74; O2SAT 96
== END 2021-04-11 14:31 | disposition home or self-care (01) ==
LOC: ER 10:19
DX: F13.20 Sedative, hypnotic or anxiolytic dependence, uncomplicated (principal); F19.20 Other psychoactive substance dependence, uncomplicated; E86.0 Dehydration; Z20.822 Contact with and (suspected) exposure to COVID-19
CPT/HCPCS: 0240U; 36415; 80048; 83735; 84145; 85025; 93005; 96361; 96374; 96375; 99285; J2405; J3360; J7030

== ENCOUNTER 2021-04-13 03:12 | Observation (INO) | payer OTHER ==
--- OUTSIDE RECORDS SUMMARY | 2021-04-13 03:16 | XMS REPORT | Continuity of Care Document ---
:1940 Author Organization [facility] Address [address] [place] [address] [address] [place] [address] Care Team Providers Name Role Phone Yan_W Attending Clinician Unavailable Abel_W Admitting Clinician Unavailable Payers Payer Name Policy Type Policy Number Effective Date Expiration Date [employer] [employer] (MEDICARE [id number] 2013 REPLACEMENT PPO) 00:00:00 Problems This patient has no known problems. Allergies, Adverse Reactions, Alerts This patient has no known allergies or adverse reactions. Social History Smoking Status Start Date Stop Date Source Never Smoker [facility] Medications Ordered Filled Start [...] BMI (Body Mass 2020-05-30 00:00:00 36.2 kg/m2 [facility] chief of service [facility]) Group BP Systolic 2020-05-30 00:00:00 171 mm[Hg] [facility] Body Weight 2020-05-30 00:00:00 210.8 [lb_av] [facility] Procedures Procedure Date / Time Performing Clinician Source Performed Repair of Meniscus [facility] Bilateral Tubal Ligation [facility] Hysterectomy [facility] Removal of Gastric Band [facility] Laparoscopic Adjustable [facility] Plan of Care Planned Activity Planned Date Details Comments Source Future Appointment 2021-05-30 Reid Roman, [facility]00 [facility]; Group [address], [place] [address] Encounters Start End Encounter Admission Attending Care Care Encounter Source Date/Time Date/Time Type Type Clinicians Facility Department ID 2020-05-31 2020-05-31 Outpatient Abel_W [facility] [id number] [facility] 09:45:00 09:45:00 0224 [facility] 2020-05-30 2020-05-30 Outpatient Yan_W [facility] [id number] [facility] 05:01:00 05:01:00 0223 [facility] 2020-05-30 2020-05-30 Reid Roman [facility] [place] - [id number] [facility] 00:00:00 00:00:00 MD: Félix Manriquez [facility] [address], [facility], [facility] [facility] [place] [address] , Ph. 2020-05-26 2020-05-26 Outpatient Abel_W [facility] [id number] [place] 12:31:00 12:31:00 0219 [facility] 2020-05-26 2020-05-26 Outpatient Yan_W [facility] [id number] [place] 12:31:00 12:31:00 022 [facility] Results This patient has no known results.
[2021-04-13] MEDS ORDERED: dexAMETHasone 4 MG/ML VIAL ONE ×2 (04:42→09:11)
[2021-04-13 05:44] LABS: Urine Blood Negative (Negative); Urine Glucose Negative (Negative); Urine Protein Negative (Negative); Urine Specific Gravity <=1.005 (1.005-1.030); Urine pH 5.5 (5.0-7.0)
[2021-04-13] MEDS ORDERED: NA CHLORIDE 0.9% 1,000 ML ONE ×2 (05:46→16:34)
[2021-04-13 05:57] LABS: Absolute Lymphocytes (CBC) 9.2 K/uL (0.7-4.9); Hematocrit 38.2 % (36.0-45.0); Lymphocytes % 64.1 % (15.3-44.8); MPV 7.7 fL (7.6-11.3); RBC Red Blood Cell Count 4.16 M/uL (3.86-4.86)
[2021-04-13 06:04] LABS: Protime INR 0.95
[2021-04-13 06:10] LABS: ALT/SGPT 35 U/L (12-78); AST/SGOT 25 U/L (15-37); Albumin 3.5 g/dL (3.4-5.0); Alkaline Phosphatase 55 U/L (45-117); BUN Blood Urea Nitrogen 10 mg/dL (7-18); Bicarbonate 28 mmol/L (21-32); Bilirubin Direct < 0.1 mg/dL (0-0.2); Bilirubin Total 0.4 mg/dL (0.2-1.0); Glucose Level 169 mg/dL (74-106); NT PRO-BNP 133 pg/mL (<450); Potassium 3.7 mmol/L (3.5-5.1); Protein, Total 7.1 g/dL (6.4-8.2); Sodium Level 138 mmol/L (136-145); Troponin (Emerg Dept Use Only) < 0.02 ng/mL (0.0-0.045)
[2021-04-13 06:19] LABS: SARS-COV-2 RT PCR NEGATIVE (NEGATIVE)
--- NOTE | 2021-04-13 06:39 | ER ---
Nurse's Notes [facility] Name: Alice Viera Age: 80 yrs Sex: Female : 1940 Arrival Date: 04/13/2021 Time: 03:18 Bed 16 Private MD: Diagnosis: Angioedema. Urinary tract infection Presentation: 04/13 03:35 Chief complaint: Patient's son or daughter states: Friday we came in and Dr. Brumfield vc1 saw her for Xanax withdrawel, (she has been on Xanax for 30 years) during the holiday she took too many and ran out. Dr. Brumfield gave her a prescription to last until 04/15 . She woke up tonight extremely emotional and feeling like her throat is swollen. Coronavirus screen: Vaccine status: Patient reports receiving the 2nd dose of the covid vaccine. Moderna. Ebola Screen: No symptoms or risks identified at this time. Initial Sepsis Screen: Does the patient meet any 2 criteria? No. Patient's initial sepsis screen is negative. Does the patient have a suspected source of infection? No. Patient's initial sepsis screen is negative. Risk Assessment: Do you want to hurt yourself or someone else? Patient reports no desire to harm self or others. Onset of symptoms was April 13, 2021. 03:35 Method Of Arrival: Ambulatory vc1 03:35 Acuity: EARNEST 3 vc1 Triage Assessment: 03:47 General: Appears distressed, Behavior is anxious, crying, inappropriate for age. Pain: vc1 Denies pain. Historical: - Allergies: 04:10 No Known Allergies; vc1 - PMHx: 03:46 CLL; diabetes mellitus; Anxiety; vc1 - PSHx: 03:46 stomach banding and unbanding; Total abdominal hysterectomy; tubal ligation; vc1 - Immunization history:: Adult Immunizations up to date, Client reports receiving the 2nd dose of the Covid vaccine, Moderna. - Social history:: Smoking status: Patient denies any tobacco usage or history of. Screenin:47 Abuse screen: Denies threats or abuse. Nutritional screening: No deficits noted. vc1 Tuberculosis screening: No symptoms or risk factors identified. Fall Risk None identified. Assessment: 04:08 General: Appears in no apparent distress. Behavior is cooperative, anxious. Pain: ic1 Denies pain. Neuro: No deficits noted. Cardiovascular: No deficits noted. Respiratory: No deficits noted. GI: No deficits noted. : No deficits noted. EENT: No deficits noted. Derm: No deficits noted. Musculoskeletal: No deficits noted. 05:08 Reassessment: Patient appears in no apparent distress at this time. Patient states ic1 feeling better. Vital Signs: 03:35 BP 145 / 83; Pulse 79; Resp 20; vc1 03:35 Temp 97.5; Pulse Ox 97% on R/A; Weight 91.63 kg; Height 5 ft. 4 in. (162.56 cm); vc1 05:07 BP 148 / 76; Pulse 80; Resp 18; Pulse Ox 98% on R/A; ic1 20:40 BP 137 / 84; Pulse 76; Resp 17; Temp 98.5; Pulse Ox 98% on R/A; Pain 2/10; mr2 03:35 Body Mass Index 34.67 (91.63 kg, 162.56 cm) vc1 ED Course: 03:18 Patient arrived in ED. wm 03:45 Triage completed. vc1 03:47 Arm band placed on left wrist. vc1 03:48 Patient has correct armband on for positive identification. vc1 04:06 Memo Banegas MD is Attending Physician. pkl 04:08 Door closed. Noise minimized. ic1 05:43 Strep Sent. ic1 05:43 COVID-19/FLU A+B (Document "Date of Onset" if Symptomatic) Sent. ic1 05:44 Basic Metabolic Panel Sent. ic1 05:44 CBC with Diff Sent. ic1 05:44 LFT's Sent. ic1 05:44 Magnesium Sent. ic1 05:44 NT PRO-BNP Sent. ic1 05:44 PT-INR Sent. ic1 05:44 Troponin (emerg Dept Use Only) Sent. ic1 06:11 XRAY Chest (1 view) In Process Unspecified. EDMS 06:37 Lazaro Ramirez MD is Hospitalizing Provider. pkl 07:27 Cintia Smith, BOONE is Primary Nurse. eo2 09:57 No provider procedures requiring assistance completed. eo2 19:08 Primary Nurse role handed off by Cintia Smith, BOONE eb 20:24 Nicola Frank, BOONE is Primary Nurse. mr2 21:34 Patient admitted, IV remains in place. mr2 Administered Medications: 04:43 Drug: Decadron - Dexamethasone 10 mg Route: IVP; Site: right antecubital; ic1 09:27 Follow up: Response: No adverse reaction eo2 05:50 Drug: NS 0.9% 1000 ml Route: IV; Rate: 100 ml/hr; Site: left antecubital; ic1 Outcome: 06:38 Decision to Hospitalize by Provider. pkl 21:34 Admitted to Med/surg accompanied by nurse. mr2 21:34 Condition: stable 21:34 Instructed on the need for admit. 22:24 Patient left the ED. bb Signatures: Dispatcher [employer] EDMS Memo Banegas MD MD pkl Sharlene Hannon RN RN bb Crystal Mckeon Wendy wm Reynard, Mike, RN RN mr2 Cintia Smith RN RN eo2 Nina Gilmore RN RN ic1 Minda Cary RN RN vc1
--- NOTE | 2021-04-13 06:39 | EDPHYS ---
Physician Documentation [facility] Name: Alice Viera Age: 80 yrs Sex: Female : 1940 Arrival Date: 04/13/2021 Time: 03:18 Bed 16 Private MD: ED Physician Memo Banegas HPI: 04/13 04:34 This 80 yrs old Female presents to ER via Ambulatory with complaints of Anxiety, pkl Possible Xanax Withdrawal. 04:34 The patient presents with localized swelling, throat. Onset: The symptoms/episode pkl began/occurred just prior to arrival. Patient said she woke up tonight and felt like her throat is swollen. Historical: - Allergies: 04:10 No Known Allergies; vc1 - PMHx: 03:46 CLL; diabetes mellitus; Anxiety; vc1 - PSHx: 03:46 stomach banding and unbanding; Total abdominal hysterectomy; tubal ligation; vc1 - Immunization history:: Adult Immunizations up to date, Client reports receiving the 2nd dose of the Covid vaccine, Moderna. - Social history:: Smoking status: Patient denies any tobacco usage or history of. ROS: 04:34 Eyes: Negative for injury, pain, redness, and discharge. pkl 04:34 ENT: Positive for swelling at the throat. 04:34 Neck: Negative for stiffness. 04:34 Cardiovascular: Negative for chest pain. 04:34 Respiratory: Negative for cough, shortness of breath. 04:34 Abdomen/GI: Negative for abdominal pain, nausea, vomiting, and diarrhea. 04:34 Back: Negative for acute changes. 04:34 : Negative for urinary symptoms. 04:34 MS/extremity: Negative for acute changes. 04:34 Skin: Negative for rash. 04:34 Neuro: Negative for altered mental status, loss of consciousness. 04:34 Psych: Positive for anxiety. Exam: 04:34 Head/Face: Normocephalic, atraumatic. Eyes: Pupils equal round and reactive to light, pkl extra-ocular motions intact. Lids and lashes normal. Conjunctiva and sclera are non-icteric and not injected. Cornea within normal limits. Periorbital areas with no swelling, redness, or edema. 04:34 ENT: Posterior pharynx: swelling, that is mild. 04:34 Neck: Exam negative for nuchal rigidity. 04:34 Chest/axilla: Exam negative for acute changes. 04:34 Cardiovascular: Rate: normal, Rhythm: regular. 04:34 Respiratory: the patient does not display signs of respiratory distress, Respirations: normal, Breath sounds: are clear throughout. 04:34 Abdomen/GI: Exam negative for acute changes. 04:34 Back: Exam negative for acute changes. 04:34 : Exam negative for acute changes. 04:34 Musculoskeletal/extremity: Exam is negative for acute changes. 04:34 Skin: Exam negative for rash. 04:34 Neuro: Orientation: is normal, Mentation: is normal, Memory: is normal, Cranial nerves: grossly normal, Cerebellar function: is grossly normal, Motor: is normal, Sensation: is normal, Gait: is steady. Vital Signs: 03:35 BP 145 / 83; Pulse 79; Resp 20; vc1 03:35 Temp 97.5; Pulse Ox 97% on R/A; Weight 91.63 kg; Height 5 ft. 4 in. (162.56 cm); vc1 05:07 BP 148 / 76; Pulse 80; Resp 18; Pulse Ox 98% on R/A; ic1 20:40 BP 137 / 84; Pulse 76; Resp 17; Temp 98.5; Pulse Ox 98% on R/A; Pain 2/10; mr2 03:35 Body Mass Index 34.67 (91.63 kg, 162.56 cm) vc1 MDM: 04:06 Patient medically screened. pkl 06:36 Data reviewed: vital signs, nurses notes, lab test result(s), EKG, radiologic studies, pkl CT scan, plain films. ED course: Talked to Dr. Ramirez, admit. 04/13 05:26 Order name: Basic Metabolic Panel; Complete Time: 06:18 pkl 04/13 05:26 Order name: CBC with Diff pkl 04/13 05:26 Order name: LFT's; Complete Time: 06:18 pkl 04/13 05:26 Order name: Magnesium; Complete Time: 06:18 pkl 04/13 05:26 Order name: NT PRO-BNP; Complete Time: 06:18 pkl 04/13 05:26 Order name: PT-INR; Complete Time: 06:18 pkl 04/13 05:26 Order name: Troponin (emerg Dept Use Only); Complete Time: 06:18 pkl 04/13 05:26 Order name: Strep; Complete Time: 06:18 pkl 04/13 05:26 Order name: COVID-19/FLU A+B (Document "Date of Onset" if Symptomatic); Complete Time: pkl 06:30 04/13 05:44 Order name: Urine Dipstick-Ancillary; Complete Time: 06:18 EDMS 04/13 05:58 Order name: Throat Culture EDMS 04/13 06:35 Order name: Urine Culture pkl 04/13 06:35 Order name: Urine Microscopic Only pkl 04/13 06:47 Order name: Manual Differential EDMS 04/13 04:32 Order name: Saline Lock; Complete Time: 04:39 pkl 04/13 05:26 Order name: XRAY Chest (1 view) pkl 04/13 05:26 Order name: EKG; Complete Time: 05:27 pkl 04/13 06:36 Order name: CT Neck Angio pkl 04/13 06:49 Order name: Clear Liquid EDMS 04/13 06:49 Order name: Basic Metabolic Panel EDMS 04/13 06:49 Order name: Basic Metabolic Panel EDMS 04/13 06:49 Order name: CBC with Automated Diff EDMS 04/13 06:49 Order name: CBC with Automated Diff EDMS 04/13 07:42 Order name: CT EDMS 04/13 12:48 Order name: Glucose, Ancillary Testing EDMS 04/13 16:49 Order name: Glucose, Ancillary Testing EDMS 04/13 16:50 Order name: Glucose, Ancillary Testing EDMS 04/13 20:20 Order name: Glucose, Ancillary Testing EDMS 04/13 05:26 Order name: Cardiac monitoring pkl 04/13 05:26 Order name: EKG - Nurse/Tech pkl 04/13 05:26 Order name: Labs collected and sent; Complete Time: 05:43 pkl 04/13 05:26 Order name: O2 Per Protocol; Complete Time: 05:44 pkl 04/13 05:26 Order name: O2 Sat Monitoring; Complete Time: 05:44 pkl Administered Medications: 04:43 Drug: Decadron - Dexamethasone 10 mg Route: IVP; Site: right antecubital; ic1 09:27 Follow up: Response: No adverse reaction eo2 05:50 Drug: NS 0.9% 1000 ml Route: IV; Rate: 100 ml/hr; Site: left antecubital; ic1 Disposition Summary: 04/13/21 06:38 Hospitalization Ordered Hospitalization Status: Inpatient Admission pkl Provider: Lazaro Ramirez pkl Condition: Stable pkl Problem: new pkl Symptoms: are unchanged pkl Bed/Room Type: Standard pkl Location: Telemetry/MedSurg (Inpatient)(04/13/21 17:45) eb Room Assignment: [facility](04/13/21 17:45) eb Diagnosis - Angioedema. Urinary tract infection pkl Forms: - Medication Reconciliation Form pkl - SBAR form pkl Signatures: Dispatcher [employer] EDMS Memo Banegas MD MD pkl Lulú Mandel RN RN Crystal Smith Iesha, RN RN ic1 Minda Cary RN RN vc1 Cintia Smith RN eo2 Corrections: (The following items were deleted from the chart) 09:13 06:38 Telemetry/MedSurg (Inpatient) pkl ss 09:13 06:38 pkl ss 17:45 09:13 [facility] ER HOLD ss eb 17:45 09:13 ERHOLD- ss eb
[2021-04-13 06:47] LABS: Blood Morphology Comment NOT SEEN (NOT SEEN); Platelet Estimate ADEQ
[2021-04-13] MEDS: NA CHLORIDE 0.9% 1,000 ML IV SCH ×3 (07:00→22:55)
[2021-04-13 07:14] LABS: Urine Bacteria <20 /HPF (<20); Urine RBC <5 /HPF (NONE SEEN)
--- NOTE | 2021-04-13 07:41 | RAD REPORT ---
EXAM DESCRIPTION: CT - Soft Tissue Neck W/Contr - 04/13/2021 7:13 am CLINICAL HISTORY: swelling throat, CLL COMPARISON: Chest Abdomen Pelvis W Cont dated 01/10/2021 TECHNIQUE: During dynamic enhancement using 100 milliliters nonionic IV contrast, axial 5 millimeter thick images of the neck were obtained. All CT scans are performed using dose optimization technique as appropriate and may include automated exposure control or mA/KV adjustment according to patient size. FINDINGS: Intracranial portion the examination is unremarkable. Mastoid air cells are clear. No acut e paranasal sinus finding. Globes and orbital contents show no suspicious findings. No pharyngeal mass or asymmetry of soft tissues identified. There is no enlargement of the tonsillar or tongue base soft tissues. Soft palate, epiglottis and laryngeal structures show no acute or suspic ious findings. Parotid, submandibular and thyroid gland tissues show no emergent or significant finding. There is a 15 millimeter left thyroid nodule. This is not likely of a long-term significance but can be further evaluated as clinical findings warrant. No acute bone or vascular finding. Patient has small bilateral cervical lymph nodes largest measuring 13 x 10 mm. Most are subcentimeter in size. There is no bulky lymphadenopathy or suspicious mass lesion identifiable. Exam extended to the subcarinal region of the chest. There are small mediastinal lymph nodes seen. A right paratracheal lymph node at the aortic arch level measuring 20 x 13 mm is the largest. This is n ot a full examination of the chest. IMPRESSION: Small bilateral cervical lymph nodes are present largest measuring 13 x 10 mm. Most lymp h nodes are sub centimeter. No tonsillar or tongue base mass. No pharyngeal suspicious finding. Limited imaging extending into the chest shows lymph nodes up to 20 x 13 mm in size.
[2021-04-13] MEDS ORDERED: dexAMETHasone 4 MG/ML VIAL IV SCH (09:00)
--- NOTE | 2021-04-13 09:10 | RAD REPORT ---
EXAM DESCRIPTION: RAD - Chest Single View - 04/13/2021 6:12 am CLINICAL HISTORY: difficulty swallowing COMPARISON: Two view chest 09/27/2020 TECHNIQUE: AP portable chest image was obtained 04/13/2021 6:12 am . FINDINGS: No peripheral mass or consolidation. Lung volumes are reduced compared to the prior study. Interstitial pattern is not outside of normal range for shallow inspiration, body habitus and portab le imaging affects. Heart and vasculature are normal. No measurable pleural effusion and no pneumothorax. No acute bony abnormality seen. No acute aortic findings suspected. IMPRESSION: No acute cardiopulmonary process.
[2021-04-13] MEDS ORDERED: NA CHLORIDE 0.9% 50 ML ONE (09:11)
[2021-04-13] MEDS ORDERED: CEFTRIAXONE 1000 MG/VIAL ONE (09:11)
[2021-04-13] MEDS: CEFTRIAXONE 1,000 MG in NA CHLORIDE 0.9% 50 ML IVPB SCH ×2 (09:40→22:55)
--- NOTE | 2021-04-13 10:04 | EKG ---
Test Date: 2021-04-13 Test Time: 05:56:19 All Source Analyst: ANNMARIE MEASUREMENT RESULTS: Intervals: Rate: 76 AL: 160 QRSD: 80 QT: 400 QTc: 450 [place]: P: 69 AL: 160 QRS: 31 T: 65 INTERPRETIVE STATEMENTS: Normal sinus rhythm Cannot rule out Anterior infarct, age undetermined Abnormal ECG Compared to ECG 04/11/2021 11:05:42 Right-axis deviation no longer present Myocardial infarct finding still present Electronically Signed On 04-13-21 10:03:20 FANCY PACKER by Christian Huynh
[2021-04-13] MEDS ORDERED: GLUCAGON 1 MG/VIAL IM PRN (11:23)
[2021-04-13] MEDS ORDERED: D50W 25 GM/50 ML SYRINGE IV PRN (11:23)
[2021-04-13 12:22] VITALS: BMI 34.7
[2021-04-13] MEDS ORDERED: INSULIN -REGULAR HUMAN 50 UNIT/0.5 ML ML ONE ×2 (13:13→20:18)
[2021-04-13] MEDS: INSULIN -REGULAR HUMAN 50 UNIT/0.5 ML ML SQ SCH ×3 (13:20→20:30)
[2021-04-13] MEDS ORDERED: ENOXAPARIN 40 MG/0.4 ML SQ ONE (16:33)
[2021-04-13] MEDS: dexAMETHasone 4 MG/ML VIAL IV SCH (17:00)
[2021-04-13] MEDS ORDERED: ENOXAPARIN 40 MG/0.4 ML SQ SCH (17:00)
[2021-04-13] MEDS: BUSPIRONE HCL 5 MG TABLET PO SCH ×2 (18:30→22:56)
[2021-04-13 20:48] VITALS: O2SAT 95
[2021-04-13] MEDS ORDERED: ARIPiprazole 5 MG TAB PO SCH (21:00)
[2021-04-14] MEDS: dexAMETHasone 4 MG/ML VIAL IV SCH ×2 (02:39→08:57)
[2021-04-14] MEDS: NA CHLORIDE 0.9% 1,000 ML IV SCH (02:41)
[2021-04-14 06:15] LABS: Absolute Lymphocytes (CBC) 7.3 K/uL (0.7-4.9); Hematocrit 38.1 % (36.0-45.0); Lymphocytes % 45.6 % (15.3-44.8); MPV 7.8 fL (7.6-11.3); RBC Red Blood Cell Count 4.18 M/uL (3.86-4.86)
[2021-04-14 08:33] VITALS: BP 148/73; TEMP 97
[2021-04-14] MEDS: BUSPIRONE HCL 5 MG TABLET PO SCH (08:56)
[2021-04-14] MEDS: INSULIN -REGULAR HUMAN 50 UNIT/0.5 ML ML SQ SCH (08:56)
[2021-04-14] MEDS: CEFTRIAXONE 1,000 MG in NA CHLORIDE 0.9% 50 ML IVPB SCH (08:57)
--- NOTE | 2021-04-14 20:51 | DS ---
Date of Discharge: 04/14/2021 Disposition: Discharged to go home. Physical Examination: HEENT: Unremarkable. Lungs: Clear to auscultation. Heart: Sounds normal. Abdomen: Soft. Bowel sounds normal. No guarding, rigidity, tenderness, or distention. Extremities: No leg edema. Discharge Diagnoses: 1.Angioedema, resolved. 2.Major depression. 3.Anxiety. 4.Hypertension. 5.Hyperlipidemia. 6.Type 2 diabetes mellitus. 7.Gastroesophageal reflux disease. Laboratory Data: Labs yesterday; white count 14.4, hemoglobin 12.6, and platelets 159; today white c ount 16, hemoglobin 12.6, and platelets 179. Yesterday, sodium 138, potassium 3.7, chloride 102, bic arb 28, BUN 10, creatinine 0.79, and glucose 169. Liver function tests unremarkable. Troponin less than 0.02. Today, sodium 139, potassium 4, chloride 107, bicarb 25, BUN 12, creatinine 0.66, and glu cose 201. Her urine culture pending. COVID-19 test negative. Hospital Course: This is a 80-year-old pleasant female patient, admitted to the hospital with angioe ashish problem. Please see dictated H and P for more information. After the patient was evaluated in the emergency room, she was admitted to the hospital. She was also reporting significant problem wit h her major depression and psychiatric consultation was obtained. Please see the consult report for more details. Dr. Padron came by to see her . He has also advised the patient to seek so ct counseling services and the patient told me today that her . I have asked her to come s ee me day after tomorrow, which is on Friday morning at 9 a.m. at my office and at that time, we will go ahead and start the referral process to psychiatrist's office. My plan is to wean off alprazolam completely over a period of time. She has 1 mg alprazolam 3 tablets as her supply on the medication and I have instructed her that she should start to take only half a tablet daily at bedtime and when I see her, I will give her a prescription for 0.25 mg alprazolam, then I will give her instruction a bout how to wean off completely. Discharge Medications And Instructions: 1.Continue prior home medication except change alprazolam 1 mg take half tablet by mouth daily at [facility]. 2.Start following new medications: a.Abilify 5 mg take one tablet by mouth daily at bedtime. b.Buspirone 5 mg take one tablet by mouth three times a day as needed for anxiety. 3.Follow up at my office on 04/16/2021 at 9 a.m. 4.Follow up with Dr. Padron, psychiatrist next week and office will assist her with appointment. KHAI/MODL Voice ID: [id number] Report ID: [id number]
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
== END 2021-04-14 11:45 | disposition home or self-care (01) ==
LOC: ER 03:12 → ERHOLD 06:56 → INTOOBSV 06:56 → 2ND 22:04
PROVIDERS: ADMIT Internal Medicine; ATTEND Internal Medicine
DX: T78.3XXA Angioneurotic edema, initial encounter (principal); F32.9 Major depressive disorder, single episode, unspecified; F41.9 Anxiety disorder, unspecified; C91.10 Chronic lymphocytic leukemia of B-cell type not having achieved remission; I10 Essential (primary) hypertension; E78.5 Hyperlipidemia, unspecified; E11.9 Type 2 diabetes mellitus without complications; K21.9 Gastro-esophageal reflux disease without esophagitis; K57.90 Diverticulosis of intestine, part unspecified, without perforation or abscess without bleeding; Z20.822 Contact with and (suspected) exposure to COVID-19; Z90.49 Acquired absence of other specified parts of digestive tract; Z90.710 Acquired absence of both cervix and uterus; Z80.0 Family history of malignant neoplasm of digestive organs; Z82.49 Family history of ischemic heart disease and other diseases of the circulatory system; Z82.61 Family history of arthritis
CPT/HCPCS: 96361; 93005 ×2; 87070; 87088; 85025 ×3; 87086; 80048 ×3; 36415 ×3; 83735 ×2; 85610; 82947 ×3; 80076; 87081; 84484; 84145; 83880; 0240U ×2; 70491; 71045; 96375; 96374 ×2; 99285 ×2; Q9967; J1100 ×4; J1650; J3360; J7030 ×5; J2405; 81003; 81015; G0378

== ENCOUNTER 2023-04-29 15:56 | Inpatient (IN) | payer OTHER ==
[2023-04-29] MEDS ORDERED: MECLIZINE HCL 12.5 MG TAB ONE (16:13)
[2023-04-29] MEDS ORDERED: ONDANSETRON 4 MG/2 ML VIAL ONE (16:32)
--- NOTE | 2023-04-29 16:33 | RAD REPORT ---
EXAM DESCRIPTION: CT - Head Brain Wo Cont - 04/29/2023 4:26 pm CLINICAL HISTORY: DIZZINESS Headache, drowsiness COMPARISON: No comparisons TECHNIQUE: All CT scans are performed using dose optimization technique as appropriate and may inclu de automated exposure control or mA/KV adjustment according to patient size. FINDINGS: No intracranial hemorrhage, hydrocephalus or extra-axial fluid collection.No areas of brai n edema or evidence of midline shift. Multifocal paranasal sinus thickening. Significant fluid/effusions of both mastoid air cells. The bill varium is intact. IMPRESSION: No acute intracranial abnormality. Complete opacification of both mastoid air cells.
[2023-04-29 16:37] LABS: Absolute Lymphocytes (CBC) 21.3 K/uL (0.7-4.9); Hematocrit 36.7 % (36.0-45.0); Lymphocytes % 82.1 % (15.3-44.8); MCV 92.3 fL (80-100); MPV 7.5 fL (7.6-11.3); Platelets 169 thou/uL (152-406); RBC Red Blood Cell Count 3.97 M/uL (3.86-4.86)
[2023-04-29 16:54] LABS: Albumin 3.4 g/dL (3.4-5.0); Bilirubin Direct 0.1 mg/dL (0-0.2); Bilirubin Indirect, Calculated 0.4 mg/dL (0.2-0.8); Bilirubin Total 0.5 mg/dL (0.2-1.0); Potassium 3.7 mEq/L (3.5-5.1); Protein, Total 8.4 g/dL (6.4-8.2); Troponin High Sensitivity 4.7 pg/mL (<58.9)
--- NOTE | 2023-04-29 17:04 | EDPHYS ---
Physician Documentation [facility] Name: Alice Viera Age: 82 yrs Sex: Female : 1940 Arrival Date: 04/29/2023 Time: 15:56 Bed 17 Private MD: ED Physician Marlon Finch HPI: 04/29 16:25 This 82 yrs old Female presents to ER via Ambulatory with complaints of Ear Pain, sp3 Dizziness. 16:25 82-year-old female with a history of CLL not on current treatment, diabetes, anxiety sp3 now presents to the ED with chief complaint bilateral ear pain, ringing, dizziness and mild headache. Symptoms have been ongoing for the last year off-and-on subsequent to getting COVID-19. Patient has been seeing ENT and today had a follow-up appointment but while in the waiting room developed these ongoing symptoms after which family decided to bring her here for evaluation first. Patient denies any trauma, or other symptoms including neck pain, difficulty swallowing, focal neurological deficit, chest pain, shortness of breath, abdominal pain, back pain, extremity weakness, speech changes, memory loss, fall, travel history, fever, known sick contacts, or any other signs or symptoms on ROS at this time.. Historical: - Allergies: 16:03 No Known Allergies; ll1 - PMHx: 16:03 Anxiety; CLL; diabetes mellitus; ll1 - PSHx: 16:03 stomach banding and unbanding; Total abdominal hysterectomy; tubal ligation; ll1 - Immunization history:: Adult Immunizations up to date. - Social history:: Smoking status: Patient denies any tobacco usage or history of. ROS: 16:26 Constitutional: Negative for fever, chills, and weight loss, Eyes: Negative for injury, sp3 pain, redness, and discharge, Neck: Negative for injury, pain, and swelling, Cardiovascular: Negative for chest pain, palpitations, and edema, Respiratory: Negative for shortness of breath, cough, wheezing, and pleuritic chest pain, Abdomen/GI: Negative for abdominal pain, nausea, vomiting, diarrhea, and constipation, Back: Negative for injury and pain, MS/Extremity: Negative for injury and deformity, Skin: Negative for injury, rash, and discoloration, Psych: Negative for depression, anxiety, suicide ideation, homicidal ideation, and hallucinations, Allergy/Immunology: Negative for hives, rash, and allergies, Endocrine: Negative for neck swelling, polydipsia, polyuria, polyphagia, and marked weight changes, Hematologic/Lymphatic: Negative for swollen nodes, abnormal bleeding, and unusual bruising, 16:26 All other systems are negative, Exam: 16:27 Constitutional: This is a well developed, well nourished patient who is awake, alert, sp3 and in no acute distress. Head/Face: Normocephalic, atraumatic. Eyes: Pupils equal round and reactive to light, extra-ocular motions intact. Lids and lashes normal. Conjunctiva and sclera are non-icteric and not injected. Cornea within normal limits. Periorbital areas with no swelling, redness, or edema. Neck: Trachea midline, no thyromegaly or masses palpated, and no cervical lymphadenopathy. Supple, full range of motion without nuchal rigidity, or vertebral point tenderness. No Meningismus. Chest/axilla: Normal chest wall appearance and motion. Nontender with no deformity. No lesions are appreciated. Cardiovascular: Regular rate and rhythm with a normal S1 and S2. No gallops, murmurs, or rubs. Normal PMI, no JVD. No pulse deficits. Respiratory: Lungs have equal breath sounds bilaterally, clear to auscultation and percussion. No rales, rhonchi or wheezes noted. No increased work of breathing, no retractions or nasal flaring. Abdomen/GI: Soft, non-tender, with normal bowel sounds. No distension or tympany. No guarding or rebound. No evidence of tenderness throughout. Back: No spinal tenderness. No costovertebral tenderness. Full range of motion. Skin: Warm, dry with normal turgor. Normal color with no rashes, no lesions, and no evidence of cellulitis. MS/ Extremity: Pulses equal, no cyanosis. Neurovascular intact. Full, normal range of motion. Psych: Awake, alert, with orientation to person, place and time. Behavior, mood, and affect are within normal limits. 16:27 ENT: Bilateral TM without erythema and with mild fluid noted. Patient's hearing is decreased bilaterally. Patient can ambulate although slightly off balance. Remainder of cranial nerves are normal. Remainder of neurological exam is normal as well including memory and speech.. 16:50 ECG was reviewed by the Attending Physician. EKG demonstrates normal sinus rhythm at 77 sp3 bpm with normal intervals, normal QRS, normal axis, nonspecific diffuse ST/ST changes without evidence of acute ischemia. Vital Signs: 16:04 BP 175 / 83; Pulse 77; Resp 17; Temp 97.1; Pulse Ox 98% ; Weight 75.75 kg; Height 5 ft. ll1 4 in. ; 16:35 BP 182 / 86; Pulse 78; Resp 16 S; Pulse Ox 98% on R/A; bp 17:30 BP 171 / 73; Pulse 76; Resp 16; Pulse Ox 96% ; cp4 18:30 BP 154 / 61; Pulse 75; Resp 16; Pulse Ox 95% ; cp4 19:30 BP 155 / 68; Pulse 73; Resp 18; Pulse Ox 97% ; cp4 16:04 Body Mass Index 28.67 (75.75 kg, 162.56 cm) ll1 MDM: 16:05 Patient medically screened. sp3 16:30 Data reviewed: vital signs, nurses notes, lab test result(s), EKG, radiologic studies. sp3 ED course: 82-year-old female with history of CLL and diabetes now with bilateral ear pain, headache and dizziness. Patient is also nauseated and has had vomiting x 1 in the ED. Differential diagnosis includes bilateral middle ear infection, labyrinthitis, peripheral vertigo, central vertigo, ICH, other intracranial process. Will obtain CT scan of the head, laboratory values and general supportive care. If workup is negative in ED, we will discharge patient on meclizine to follow back up with ENT for which family states they can likely get an appointment tomorrow morning. They were there and the ENT waiting room when they decided to come here. She has been seen multiple times for this at that same specialist office. Disposition pending workup and patient course. Everybody is on board with the plan.. 17:02 ED course: CT confirms bilateral mastoiditis and leukocytosis of 26,000. I spoke to Dr. trevor Martinez from ENT who also agrees on admission recommendation. Will start IV vancomycin and IV Rocephin and obtain blood cultures and admit to internal medicine. Dr. Martinez states that she will be in first thing in the morning to further evaluate. Inpatient team communicated via text message and they confirmed admission.. 04/29 16:06 Order name: Basic Metabolic Panel; Complete Time: 16:58 sp3 01/23 16:06 Order name: CBC with Diff sp3 04/29 16:06 Order name: LFT's; Complete Time: 16:58 sp3 04/29 16:06 Order name: Magnesium; Complete Time: 16:58 sp3 04/29 16:06 Order name: Troponin HS; Complete Time: 16:58 sp3 04/29 16:58 Order name: Blood Culture Adult (2) sp3 04/29 17:45 Order name: Urinalysis w/ reflexes EDMS 04/29 17:45 Order name: Basic Metabolic Panel EDMS 04/29 17:45 Order name: Basic Metabolic Panel EDMS 04/29 17:45 Order name: Basic Metabolic Panel EDMS 04/29 17:45 Order name: Basic Metabolic Panel EDMS 04/29 17:45 Order name: CBC with Automated Diff EDMS 04/29 17:45 Order name: CBC with Automated Diff EDMS 04/29 17:45 Order name: CBC with Automated Diff EDMS 04/29 17:45 Order name: CBC with Automated Diff EDMS 04/29 17:45 Order name: Magnesium EDMS 04/29 17:45 Order name: Magnesium EDMS 04/29 17:45 Order name: Magnesium EDMS 04/29 17:45 Order name: Magnesium EDMS 04/29 18:07 Order name: Vancomycin Level Trough EDMS 04/29 21:12 Order name: Manual Differential EDMS 04/29 23:14 Order name: Glucose, Ancillary Testing EDMS 04/29 16:06 Order name: CT Head Brain wo Cont; Complete Time: 16:42 sp3 04/29 16:06 Order name: EKG; Complete Time: 16:07 sp3 04/29 17:40 Order name: CONS Physician Consult EDMS 04/29 16:06 Order name: EKG - Nurse/Tech; Complete Time: 16:35 sp3 04/29 16:06 Order name: IV Saline Lock; Complete Time: 16:23 sp3 04/29 16:06 Order name: Labs collected and sent; Complete Time: 16:23 sp3 Administered Medications: 16:23 Drug: Meclizine PO 25 mg PO once Route: PO; bp 17:32 Follow up: Response: No adverse reaction cp4 16:35 Drug: Ondansetron IVP 4 mg IVP once; over 2 minutes Route: IVP; Site: right antecubital;bp 17:32 Follow up: Response: No adverse reaction cp4 17:31 Drug: Rocephin IV 1 grams IV at calculated rate once; Given slow IV push per pharmacy cp4 instructions Route: IV; Rate: calculated rate; Site: right antecubital; 17:31 Follow up: Response: No adverse reaction; IV Status: Completed infusion cp4 17:31 Drug: vancoMYCIN IVPB 1 grams IVPB once over 2 hrs Route: IVPB; Infused Over: 2 hrs; cp4 Site: right antecubital; Disposition Summary: 04/29/23 17:04 Hospitalization Ordered Notes: Hospitalization Status: Inpatient Admission sp3 Provider: Humberto Rodas sp3 Condition: Stable sp3 Problem: new sp3 Symptoms: have worsened sp3 Bed/Room Type: Standard sp3 Location: Telemetry/MedSurg (Inpatient)(04/29/23 22:27) pm6 Room Assignment: [facility](04/29/23 22:35) Diagnosis - Acute mastoiditis sp3 Forms: - Medication Reconciliation Form sp3 - SBAR form sp3 - Leadership Thank You Letter sp3 Signatures: Dispatcher [employer] EDMitzi Bañuelos RN RN ph Garcia, Cindy, RN RN Armen Osborne RN RN bp Lewis, Lynsay, RN RN ll1 Marlon Finch MD MD sp3 Dorinda Villanueva cp4 Vira Hook pm6 Corrections: (The following items were deleted from the chart) 18:44 17:04 Telemetry/MedSurg (Inpatient) sp3 ph 18:44 17:04 sp3 ph 22:27 18:44 [facility] ER HOLD ph pm6 22:27 18:44 ERHOLD- ph pm6 22:35 22:27 415 pm6
--- NOTE | 2023-04-29 17:04 | ER ---
Nurse's Notes [facility] Name: Alice Viera Age: 82 yrs Sex: Female : 1940 Arrival Date: 04/29/2023 Time: 15:56 Bed 17 Private MD: Diagnosis: Acute mastoiditis Presentation: 04/29 16:04 Chief complaint: Patient states: Ear pain, B hearing loss for 2+ weeks. Dizziness ll1 started today with nausea. Coronavirus screen: Client denies travel out of the [place] in the last 14 days. At this time, the client does not indicate any symptoms associated with coronavirus-19. Ebola Screen: Patient denies travel to an Ebola-affected area in the 21 days before illness onset. Initial Sepsis Screen: Does the patient meet any 2 criteria? No. Patient's initial sepsis screen is negative. Does the patient have a suspected source of infection? Yes: Other: Ears. Risk Assessment: Do you want to hurt yourself or someone else? Patient reports no desire to harm self or others. Onset of symptoms was April 15, 2023. 16:04 Method Of Arrival: Ambulatory ll1 16:04 Acuity: EARNEST 3 ll1 Triage Assessment: 16:05 General: Appears uncomfortable, Behavior is calm, cooperative, appropriate for age. ll1 Pain: Complains of pain in right ear and left ear Quality of pain is described as aching. Pain: Pain currently is 10 out of 10 on a pain scale. EENT: Reports pain in left ear and right ear. Historical: - Allergies: 16:03 No Known Allergies; ll1 - PMHx: 16:03 Anxiety; CLL; diabetes mellitus; ll1 - PSHx: 16:03 stomach banding and unbanding; Total abdominal hysterectomy; tubal ligation; ll1 - Immunization history:: Adult Immunizations up to date. - Social history:: Smoking status: Patient denies any tobacco usage or history of. Screenin:57 [facility] ED Fall Risk Assessment (Adult) Score/Fall Risk Level 0 - 2 = Low Risk. Abuse bp screen: Denies threats or abuse. Denies injuries from another. Nutritional screening: No deficits noted. Tuberculosis screening: No symptoms or risk factors identified. Assessment: 16:30 General: Appears in no apparent distress. Behavior is calm, cooperative. Pain: bp Complains of pain in left ear and right ear. Neuro: Level of Consciousness is awake, alert, obeys commands, Oriented to person, place, time, situation, Reports dizziness. Cardiovascular: Denies chest pain, Capillary refill < 3 seconds Patient's skin is warm and dry. Respiratory: Respiratory effort is even, unlabored, Respiratory pattern is regular, symmetrical. GI: Pt is actively vomiting bile, Reports nausea. : No deficits noted. No signs and/or symptoms were reported regarding the genitourinary system. EENT: Reports decreased hearing. Derm: Skin is intact. 23:07 Reassessment: report given to BOONE Nixon. ha1 Vital Signs: 16:04 BP 175 / 83; Pulse 77; Resp 17; Temp 97.1; Pulse Ox 98% ; Weight 75.75 kg; Height 5 ft. ll1 4 in. ; 16:35 BP 182 / 86; Pulse 78; Resp 16 S; Pulse Ox 98% on R/A; bp 17:30 BP 171 / 73; Pulse 76; Resp 16; Pulse Ox 96% ; cp4 18:30 BP 154 / 61; Pulse 75; Resp 16; Pulse Ox 95% ; cp4 19:30 BP 155 / 68; Pulse 73; Resp 18; Pulse Ox 97% ; cp4 16:04 Body Mass Index 28.67 (75.75 kg, 162.56 cm) ll1 ED Course: 15:59 Patient arrived in ED. ts1 16:03 Arm band placed on. ll1 16:05 Triage completed. ll1 16:05 Marlon Finch MD is Attending Physician. sp3 16:23 Inserted saline lock: 20 gauge in right antecubital area, using aseptic technique. bp Blood collected. 16:28 CT Head Brain wo Cont In Process Unspecified. EDMS 16:35 EKG done, by ED staff, reviewed by Marlon Finch MD. em1 16:57 Bed in low position. Call light in reach. Side rails up X2. Adult w/ patient. bp 17:03 Humberto Rodas MD is Hospitalizing Provider. sp3 17:04 Dorinda Villanueva is Primary Nurse. cp4 17:17 Blood Culture Adult (2) Sent. cp4 20:16 No provider procedures requiring assistance completed. Patient admitted, IV remains in cp4 place. 20:17 Provided Education on: admission. cp4 Administered Medications: 16:23 Drug: Meclizine PO 25 mg PO once Route: PO; bp 17:32 Follow up: Response: No adverse reaction cp4 16:35 Drug: Ondansetron IVP 4 mg IVP once; over 2 minutes Route: IVP; Site: right antecubital;bp 17:32 Follow up: Response: No adverse reaction cp4 17:31 Drug: Rocephin IV 1 grams IV at calculated rate once; Given slow IV push per pharmacy cp4 instructions Route: IV; Rate: calculated rate; Site: right antecubital; 17:31 Follow up: Response: No adverse reaction; IV Status: Completed infusion cp4 17:31 Drug: vancoMYCIN IVPB 1 grams IVPB once over 2 hrs Route: IVPB; Infused Over: 2 hrs; cp4 Site: right antecubital; Medication: 16:57 VIS not applicable for this client. bp Outcome: 17:04 Decision to Hospitalize by Provider. sp3 20:16 Admitted to ER Hold. Please see [facility] for further documentation. cp4 20:16 Condition: stable 20:16 Instructed on follow up and referral plans. the need for admit, 04/30 00:14 Admitted to Tele accompanied by nurse, via wheelchair, room 407, with chart, ha1 Condition: stable Instructed on the need for admit, Demonstrated understanding of instructions, 00:14 Patient left the ED. ha1 Signatures: Dispatcher [employer] Robbin Mcrae em1 Armen Osborne RN RN bp Lewis, Lynsay, RN RN ll1 Marlon Finch MD MD sp3 Grecia Luna RN RN ha1 Rubina Vitale PAS PAS 1 Dorinda Villanueva cp4
[2023-04-29] MEDS ORDERED: VANCOMYCIN 1 GM/VIAL ONE ×2 (17:18→20:44)
[2023-04-29] MEDS ORDERED: CEFTRIAXONE 1000 MG/VIAL ONE (17:18)
[2023-04-29] MEDS ORDERED: NA CHLORIDE 0.9% 250 ML ONE ×2 (17:19→20:45)
[2023-04-29] MEDS ORDERED: ALPRAZOLAM 0.25 MG TABLET PO PRN (17:40)
[2023-04-29] MEDS ORDERED: ONDANSETRON 4 MG/2 ML VIAL IV PRN (17:40)
[2023-04-29] MEDS ORDERED: ACETAMINOPHEN 500 MG TAB PO PRN (17:40)
[2023-04-29] MEDS ORDERED: NA CHLORIDE 0.9% 1,000 ML IV SCH (18:00)
--- NOTE | 2023-04-29 18:43 | P.HP ---
Certification for Inpatient Patient admitted to: Inpatient With expected LOS: <2 Midnights Practitioner: I am a practitioner with admitting privileges, knowledge of patient current condition, hospital course, and medical plan of care. Services: Services provided to patient in accordance with Admission requirements found in Title 42 Section 412.3 of the Code of Federal Regulations Patient History Date of Service: 04/29/23 Reason for admission: Mastoiditis History of Present Illness: 82-year-old female with a past medical history of CLL, diabetes, anxiety, hypertension, hyperlipidemia, presents to the emergency room with bilateral ear pain, headache. Reports associated dizziness, she reports seeing Dr. Cortes for bilateral ear infections at [facility]. Reports symptoms are progressively getting worse with bilateral hearing loss, bilateral posterior ear pain, worse over the last 2 days. She was referred to the emergency room by Dr. Cortes. Daughter is at bedside and is primary historian, patient denies cough, congestion, chest pain, shortness of breath, confusion, fever. Plan to admit for bilateral mastoiditis for IV antibiotics, with [employer] consultant ENT Dr. Martinez. CT of the head IMPRESSION: No acute intracranial abnormality. Complete opacification of both mastoid air cells. Laboratory evaluation CBC 26.0 left shift 14.6, mild hyponatremia 135, patient was treated with IV vancomycin, ceftriaxone in the emergency room. Allergies No Known Allergies Allergy (Verified 10/04/15 10:56) Home Medications: ALPRAZolam [Alprazolam] 1 tab PO BEDTIME PRN 07/08/19 Amlodipine [Norvasc*] 5 mg PO DAILY 07/08/19 Atorvastatin Calcium [Lipitor*] 10 mg PO BEDTIME 07/08/19 Calcium Carbonate, 750mg 1 tab PO BEDTIME PRN 07/08/19 Duloxetine HCl [Cymbalta] 60 mg PO BID 07/08/19 Losartan Potassium [Cozaar] 25 mg PO DAILY 07/08/19 Vit C/E/Zn/Coppr/Lutein/Zeaxan [Preservision Areds 2 Softgel] 2 each PO BID 05/27 Glipizide [Glipizide Xl] 2.5 mg PO DAILY 04/13/21 - Past Medical/Surgical History Diabetic: Yes -: Hypertension -: Hyperlipidemia -: Anxiety -: Removal of lymph node on right breast -: partial hysterectomy, -: stomach banding -: lymphoma removal porsha breast -: reversal banding -: tubal ligation -: colonoscopy -: egd - Family History Father -: Heart disease, Diabetes, Cancer, Other (see notes) Notes: Cancer of the throat, tongue and prostate Mother -: Other (see notes) Notes: Rheumatoid arthritis - Social History Alcohol use: No CD- Drugs: Yes Caffeine use: Yes Review of Systems per HPI Physical Examination - Physical Exam General: Alert, In no apparent distress, Oriented x3 HEENT: Mucous membr. moist/pink, Other ([place], B) posterior ear tenderness) Neck: 2+ carotid pulse no bruit, JVD not distended Cardiovascular: No edema, Normal pulses Gastrointestinal: Normal bowel sounds, Soft and benign Musculoskeletal: No clubbing, No swelling Integumentary: No rashes, No breakdown Neurological: Normal speech, Normal strength at 5/5 x4 extr - Studies Laboratory Data (last 24 hrs) 04/29/23 04/29/23 16:20 16:20 WBC 26.00 H Hgb 12.3 Hct 36.7 Plt Count 169 Sodium 135 L Potassium 3.7 BUN 8 Creatinine 0.83 Glucose 130 H Magnesium 2.0 Total Bilirubin 0.5 AST 12 L ALT 19 Alkaline Phosphatase 55 Assessment and Plan - Plan Assessment plan Bilateral mastoiditis Dizziness Leukocytosis ENT consult Dr. Martinez IV cefepime, IV vancomycin, as needed analgesics, Antivert, antiemetics, probiotic Fall precaution presents to the emergency room with bilateral ear pain, headache. Reports associated dizziness, she reports seeing Dr. Cortes for bilateral ear infections at [facility]. Reports symptoms are progressively getting worse with bilateral hearing loss, bilateral posterior ear pain, worse over the last [address] of the head IMPRESSION: No acute intracranial abnormality. Complete opacification of both mastoid air cells. Laboratory evaluation CBC 26.0 left shift 14.6 Non-insulin dependent diabetes Accu-Cheks, sliding scale insulin mild hyponatremia Sodium 135, Gentle IV fluids History CLL anxiety Essential hypertension hyperlipidemia Resume home medication Full code DVT Lovenox Diet soft Discharge Plan: Home Plan to discharge in: 48 Hours - Advance Directives Does patient have a Living Will: No Does patient have a Durable POA for Healthcare: No - Code Status/Comfort Care Code Status: Full Code Critical Care: No Time Spent Managing Pts Care (In Minutes): 55
[2023-04-29] MEDS ORDERED: ALPRAZOLAM 1 MG TABLET PO PRN (18:50)
[2023-04-29] MEDS ORDERED: MECLIZINE HCL 12.5 MG TAB PO PRN (18:50)
[2023-04-29] MEDS ORDERED: GLUCAGON 1 MG/VIAL IM PRN (18:55)
[2023-04-29] MEDS ORDERED: D50W 25 GM/50 ML SYRINGE IV PRN (18:55)
[2023-04-29] MEDS ORDERED: VANCOMYCIN 1 GM in NA CHLORIDE 0.9% 250 ML IVPB ONE ×2 (19:00→20:00)
[2023-04-29] MEDS ORDERED: CALCIUM CARBONATE 500 MG TAB PO PRN (19:38)
[2023-04-29] MEDS ORDERED: NA CHLORIDE 0.9% 1,000 ML ONE (20:45)
[2023-04-29] MEDS ORDERED: DULOXETINE 30 MG CAP PO SCH (21:00)
[2023-04-29] MEDS ORDERED: ATORVASTATIN 10 MG TAB PO SCH (21:00)
[2023-04-29] MEDS ORDERED: CEFEPIME 2 GM in NA CHLORIDE 0.9% 100 ML IV SCH (21:00)
[2023-04-29] MEDS ORDERED: INSULIN REGULAR (HUMAN) 100 UNIT/ML SQ SCH (21:00)
[2023-04-29 21:12] LABS: Blood Morphology Comment NOT SEEN (NOT SEEN); Platelet Estimate ADEQ
[2023-04-29 21:33] VITALS: BMI 28.6
[2023-04-29] MEDS ORDERED: HYDROMORPHONE HCL 0.5 MG/0.5 ML INJ ONE (22:09)
[2023-04-29] MEDS ORDERED: CEFEPIME 2 GM VIAL ONE (22:09)
[2023-04-29] MEDS ORDERED: ATORVASTATIN 10 MG TAB ONE (22:10)
[2023-04-29] MEDS: HYDROMORPHONE HCL 0.5 MG/0.5 ML INJ IV PRN (22:10)
[2023-04-29] MEDS ORDERED: NA CHLORIDE 0.9% 100 ML ONE (22:10)
[2023-04-29] MEDS ORDERED: DULOXETINE 30 MG CAP PO ONE (22:10)
[2023-04-30] MEDS: HYDROMORPHONE HCL 0.5 MG/0.5 ML INJ IV PRN (03:00)
[2023-04-30] MEDS ORDERED: D50W 25 GM/50 ML SYRINGE IV PRN (07:23)
[2023-04-30] MEDS ORDERED: GLUCAGON 1 MG/VIAL IM PRN (07:23)
[2023-04-30] MEDS ORDERED: ONDANSETRON 4 MG/2 ML VIAL IV PRN ×2 (07:26→09:08)
[2023-04-30] MEDS: INSULIN REGULAR (HUMAN) 100 UNIT/ML SQ SCH ×4 (07:30→21:00)
[2023-04-30] MEDS ORDERED: D10W 125 ML IV PRN (07:34)
[2023-04-30] MEDS ORDERED: VANCOMYCIN 1 GM in NA CHLORIDE 0.9% 250 ML IVPB SCH (08:00)
[2023-04-30] MEDS: ENOXAPARIN 40 MG/0.4 ML SQ SCH (08:18)
[2023-04-30] MEDS: CEFTRIAXONE 1,000 MG in NA CHLORIDE 0.9% 50 ML IVPB SCH ×2 (08:18→21:19)
[2023-04-30] MEDS ORDERED: LOSARTAN POTASSIUM 50 MG TABLET PO SCH (09:00)
[2023-04-30] MEDS ORDERED: AMLODIPINE 5 MG TAB PO SCH (09:00)
[2023-04-30] MEDS: MORPHINE 2 MG/ML SYR IV PRN ×4 (09:23→21:18)
--- NOTE | 2023-04-30 11:45 | RAD REPORT ---
EXAM DESCRIPTION: MRI - Brain Wo Cont - 04/30/2023 11:26 am CLINICAL HISTORY: Headache/mastoiditis COMPARISON: Head CT April 29, 2023 TECHNIQUE: Axial, sagittal, and coronal magnetic resonance images of the brain were obtained. FINDINGS: No significant abnormal signal within the brain Diffusion-weighted/ADC mapping does not reveal evidence of acute infarction. The ventricles are normal caliber. An extra-axial fluid collection is not noted. Mild chronic sinusitis Both mastoids are completely opacified. This has developed since 2021 IMPRESSION: Complete opacification of the mastoids may indicate mastoiditis. No acute intracranial abnormality noted
[2023-04-30] MEDS ORDERED: VANCOMYCIN 1.25 GM in NA CHLORIDE 0.9% 250 ML IVPB SCH (17:00)
[2023-04-30] MEDS: VANCOMYCIN 1.25 GM in NA CHLORIDE 0.9% 250 ML IVPB SCH (17:04)
--- NOTE | 2023-04-30 17:25 | EKG ---
Test Date: 2023-04-29 Test Time: 16:33:05 Rooming House Keeper: MEASUREMENT RESULTS: Intervals: Rate: 77 IL: 150 QRSD: 76 QT: 396 QTc: 448 [place]: P: 66 IL: 150 QRS: 6 T: 44 INTERPRETIVE STATEMENTS: Normal sinus rhythm Cannot rule out Anterior infarct, age undetermined Abnormal ECG Compared to ECG 04/13/2021 20:59:45 No significant changes Electronically Signed On 04-30-23 17:23:12 [employer]CH MACHINE INSPECTOR by Jarrod Cesar
[2023-04-30] MEDS ORDERED: carvediloL 25 MG TAB PO ONE (19:03)
--- NOTE | 2023-04-30 19:06 | CON ---
Date of Consultation: 04/30/2023 Chief Complaint: Bilateral ear and mastoid pain. History Of Present Illness: The patient is a pleasant 82-year-old female with past medical history of CLL, diabetes, anxiety, hypertension, hyperlipidemia, who presented to emergency room on 04/29/2023 with bilateral ear pain and headache. She has been seen in outpatient setting in our office by the TUB MENDER, on April 09, 2023, for acute serous otitis media involving the right ear, rhinitis medicamentosa, acute nasopharyngitis. She was on Ciprodex otic drops and was told to stop and she was placed on fluticasone nasal spray, and unfortunately serous otitis media developed into an acute otitis media infection and she had an appointment on 04/29/[address] Cortes, but she canceled it and instead went to the emergency room. She was subsequently admitted and placed on Rocephin and vancomycin IV for bilateral acute mastoiditis. Upon arrival at the bedside, the patient states that she does not hear anything and that I have to translate through the daughter due to her decreased hearing. She also has associated disequilibrium and bilateral otalgia extending to bilateral temporal bones, moderate to severe, which occurred approximately 2 days ago. Currently, she denies intranasal congestion, cough, shortness of breath, chest pain, neck stiffness, confusion, or fever. She does not have a prior history of ear infections, although her granddaughter has a history of bilateral chronic otitis media. She also denies tinnitus today. No other complaints. Past Medical History And Past Surgical History: Hypertension, hyperlipidemia, anxiety, partial hysterectomy, gastric band, right breast lymph node removal, lymphoma removal of bilateral breasts, reversal of gastric band, tubal ligation, colonoscopy, EGD. Home Medications: Alprazolam, amlodipine, atorvastatin, calcium carbonate, duloxetine, losartan, potassium, multivitamins, glipizide. Social History: Denies alcohol, tobacco, or illicit drugs. She does use caffeine. Allergies: NO KNOWN DRUG ALLERGIES. Review of Systems: General: Positive for dizziness. Negative for confusion, disorientation. Head: Positive for bilateral temporal bone pain, moderate to severe. Eyes: Negative for blurred or double vision or drainage. Ears: Positive for severe bilateral hearing loss, otalgia, negative for tenderness. Nose: Negative for rhinorrhea, nasal congestion, postnasal drip. Throat: Negative for throat pain, odynophagia, dysphagia. Neck: Negative for neck mass, lymph node enlargement, thyroid enlargement. Physical Examination: General: The patient is awake, alert, oriented, no apparent distress. She is oriented x3. Head: Atraumatic, normocephalic with moderate tenderness to percussion over the bilateral temporal bones. Ears: Bilateral external auditory canals patent. Tympanic membranes are intact, but bulging and there is evidence of thick mucoid effusion involving the middle ear with dull tympanic membrane light reflex. Ossicles appear intact. Nose: Bilateral nasal cavities are patent. Midline septum. No rhinorrhea or postnasal drip. Throat: Moist oral mucosa. Midline uvula. No exudate or edema or erythema. Neck: Supple. Trachea midline. No thyromegaly or lymphadenopathy palpated. Laboratory Data: CT scan of the head without contrast revealed diffuse complete opacification of bilateral temporal bones/mastoid cavities, but no evidence of coalescence or abscess. Bilateral middle ear ossicles appear intact with no erosion. There is a middle ear effusion located in the middle ear cavity. In addition, there is incidental findings of bilateral ethmoid sinus effusion extending into the bilateral frontal recesses. Laboratory data from 04/29/2023 demonstrates leukocytosis of 26.00 with predominantly lymphocytes, neutrophil count is normal. This may suggest a viral etiology. Diagnoses: 1. Bilateral acute mastoiditis. 2. Bilateral acute otitis media. 3. Disequilibrium. 4. Leukocytosis. Recommendations: 1. Continue IV vancomycin and Rocephin as prescribed. 2. May take antiemetics and Antivert p.r.n. disequilibrium. 3. Recommend setting up for bilateral myringotomy with grommet insertion. Per the literature, it is recommended that she be on IV antibiotics for approximately 48 hours before tube insertion. She is scheduled for 05/02/2023, at noon. 4. The patient needs to be n.p.o. after 6 a.m. on day of surgery. JOSEFINA/GABRIEL Voice ID: [id number] Report ID: [id number] WADE
[2023-04-30] MEDS: TRAZODONE 50 MG TABLET PO SCH (21:19)
[2023-05-01] MEDS: MORPHINE 2 MG/ML SYR IV PRN ×4 (03:12→19:16)
[2023-05-01] MEDS: INSULIN REGULAR (HUMAN) 100 UNIT/ML SQ SCH ×4 (07:30→20:51)
--- NOTE | 2023-05-01 07:33 | HP ---
Date of Admission: 04/29/2023 Chief Complaint: Fever, chills, and cannot hear. History Of Present Illness: This is an 82-year-old very pleasant female patient who came to see me a bout a month ago on March 20, 2023, with almost 2 weeks' history of impaired hearing, worse in the right ear than the left ear. She did not have any pain in the ear or behind her ear at that time. She had sore throat to start with, and her sore throat problem had gone away. The patient had wax in her both ears, and she had otitis media of the right ear and she was prescribed amoxicillin. Since that time, her ear has not felt better and she has been seeing Dr. Cortes and has received different prescription medications. Her hearing has continuously gotten worse to the extent that last few day s now she is having pain behind each ear over the mastoid bone area, and she started to have fever an d chills yesterday, so she came into emergency room. After she was evaluated in the ER, she was admi tted to the hospital with bilateral mastoiditis. In the emergency room, she had informed ER staff th at I was her physician and unfortunately she was still ended up getting admitted to Hospitalist team, and I did not find out about this until this morning when I came to the hospital and when I saw her name, I did take over her care this morning. Allergies: TO RYBELSUS, CAUSING THROAT CLOSING TYPE OF FEELING. Medications: Atorvastatin 10 mg daily, buspirone 5 mg 3 times a day as needed for anxiety, duloxetin e 20 mg daily, carvedilol 25 mg 2 times a day, losartan/HCTZ 50/12.5 one tablet daily, Janumet 100 mg /1000 mg one tablet daily in the evening, omeprazole 40 mg daily, trazodone 50 mg daily at bedtime. Review of Systems: ENT: As mentioned above. Constitutional: As mentioned above. All other systems reviewed and negative. Past Medical History: Significant for type 2 diabetes mellitus, hypertension, hyperlipidemia, CLL, g astroesophageal reflux disease, diverticulosis, anxiety, depression. Past Surgical History: Significant for cholecystectomy, appendectomy, gastric band placement, tubal ligation, carpal tunnel surgery, and arthroscopic knee surgery. Family History: Father , had throat cancer. Mother , had coronary artery disease and rheuma toid arthritis. Social History: Negative for smoking and alcohol use. Physical Examination: Vital Signs: This morning, temperature 97.5, pulse 81, respiratory rate 18, blood pressure 148/85, o xygen saturation 90%. Height 5 feet 4 inches, weight 167 pounds. General: Awake, alert, oriented, not in distress. HEENT: Head atraumatic, normocephalic. Conjunctivae nonerythematous. Sclerae white. Mouth, no thr ush or edema noted. Ears/Nose: The patient has extreme difficulty hearing to the extent that she al most cannot hear anything we tell her and I communicated with her by writing things. She does have m ild tenderness over bilateral mastoid bone area. Neck: Supple. No JVD, lymph nodes, bruit, thyromegaly noted. Lungs: Bilateral good equal air entry. Clear to auscultation. No rhonchi. No rales. Heart: Normal heart sounds, no murmur or gallop. Abdomen: Soft, bowel sounds normal. No guarding, rigidity, tenderness, mass, hepatosplenomegaly, dis tention, or bruit noted. Extremities: No leg edema. No calf tenderness. Skin: No rash, ulcer, cellulitis. Lymphatics: No lymph node enlargement in neck, supraclavicular, infraclavicular region. Neuro: No focal neurological deficit. Chest: Unremarkable. External Genitalia: Deferred. Rectal: Deferred. Laboratory Data: White count 26, hemoglobin 12.3, platelets 169. Sodium 135, potassium 3.7, chlorid e 101, bicarb 27, BUN 8, creatinine 0.83, glucose 130. Liver function test unremarkable. CAT scan o f the head negative for any acute intracranial changes and it shows opacification of bilateral mastoi ds. Impression: 1.Acute mastoiditis. 2.Chronic lymphocytic leukemia. 3.Type 2 diabetes mellitus. 4.Hypertension. 5.Hyperlipidemia. 6.Gastroesophageal reflux disease. 7.Diverticulosis. 8.Anxiety. 9.Depression. Plan: We will go ahead and admit the patient to hospital for further evaluation and management of th is problem. The patient is appropriate for inpatient and is expected to spend 2 midnights in the [facility]. She did receive some antibiotics in the emergency room, which were vancomycin and cefepime. We will continue ceftriaxone 1 g IV every 12 hours and vancomycin per order. Consult Pharmacy for va ncomycin dose management. We will consult ENT specialist for this mastoiditis problem. Diabetes amira l be managed with sliding scale insulin while in the hospital. We will go ahead and continue her ant ihypertensive medications, which are carvedilol and losartan/HCT, per order. For anxiety and depress ion, she takes duloxetine, which we will continue that. For hyperlipidemia, she takes atorvastatin a nd we will continue that per order. No need for any further intervention. DVT prophylaxis will be g iven using Lovenox. Plan of treatment discussed with the patient. We will go ahead and get MRI done today for further evaluation of this mastoiditis. KHAI/MODL Voice ID: [id number]
[2023-05-01] MEDS ORDERED: INFLUENZA VACCINE (for 6+ mo) 0.5 ML DOSE IMVAC ONE (08:00)
[2023-05-01] MEDS ORDERED: PNEUMOCOCCAL VACCINE 0.5 ML IMVAC ONE (08:00)
[2023-05-01] MEDS: LOSARTAN/HCTZ 50-12.5 PO SCH (08:44)
[2023-05-01] MEDS: DULOXETINE 20 MG CAP PO SCH (08:44)
[2023-05-01] MEDS: carvediloL 25 MG TAB PO SCH ×2 (08:45→20:50)
[2023-05-01] MEDS: CEFTRIAXONE 1,000 MG in NA CHLORIDE 0.9% 50 ML IVPB SCH ×2 (08:45→20:50)
[2023-05-01] MEDS: ENOXAPARIN 40 MG/0.4 ML SQ SCH (08:46)
[2023-05-01] MEDS: VANCOMYCIN 1.25 GM in NA CHLORIDE 0.9% 250 ML IVPB SCH (17:00)
[2023-05-01] MEDS: VANCOMYCIN 1.5 GM in NA CHLORIDE 0.9% 500 ML IVPB SCH (17:16)
[2023-05-01] MEDS: TRAZODONE 50 MG TABLET PO SCH (20:50)
[2023-05-01] MEDS: JANUMET PO SCH (20:55)
[2023-05-02] MEDS: MORPHINE 2 MG/ML SYR IV PRN (01:44)
[2023-05-02 05:31] LABS: Absolute Lymphocytes (CBC) 16.8 K/uL (0.7-4.9); Hematocrit 31.2 % (36.0-45.0); Lymphocytes % 82.5 % (15.3-44.8); MCV 91.2 fL (80-100); MPV 7.2 fL (7.6-11.3); Platelets 147 thou/uL (152-406); RBC Red Blood Cell Count 3.42 M/uL (3.86-4.86)
[2023-05-02 05:52] LABS: Magnesium 2.2 mg/dL (1.6-2.4); Potassium 3.3 mEq/L (3.5-5.1)
[2023-05-02] MEDS: INSULIN REGULAR (HUMAN) 100 UNIT/ML SQ SCH ×4 (07:30→21:00)
[2023-05-02] MEDS: carvediloL 25 MG TAB PO SCH ×2 (08:22→21:10)
[2023-05-02] MEDS: CEFTRIAXONE 1,000 MG in NA CHLORIDE 0.9% 50 ML IVPB SCH ×2 (08:23→21:11)
[2023-05-02] MEDS: DULOXETINE 20 MG CAP PO SCH (08:23)
[2023-05-02] MEDS: LOSARTAN/HCTZ 50-12.5 PO SCH (08:23)
[2023-05-02] MEDS: ENOXAPARIN 40 MG/0.4 ML SQ SCH (08:24)
[2023-05-02] MEDS ORDERED: POTASSIUM CL SA 10 MEQ TAB PO ONE (09:04)
[2023-05-02] MEDS: D5 0.45 NS 1,000 ML IV SCH (09:12)
--- NOTE | 2023-05-02 11:12 | PN ---
Date of Progress Note: 05/01/2023 Subjective: The patient was seen this morning for followup. No new complaints or problems reported by the patient. She still continues to have problems where she cannot hear anything out of her ears. No nausea, no vomiting. No headache. Objective: Vital Signs: Reviewed. HEENT: Unremarkable. Lungs: Clear to auscultation. Heart: Sounds normal. Abdomen: Soft. Bowel sounds normal. No guarding, rigidity, tenderness, distention. Extremities: No leg edema. Laboratory Data: There were no new labs today. MRI of the brain has shown bilateral mastoiditis. N o acute intracranial changes. Impression: 1.Bilateral mastoiditis. 2.Hypertension. 3.Hyperlipidemia. 4.Type 2 diabetes mellitus. Plan: We will go ahead and continue current IV antibiotic, which is ceftriaxone and vancomycin. Con litoue to follow with ENT specialist, Dr. Martinez. We will continue current antihypertensive medication and Dr. Martinez is planning to do surgery tomorrow. Continue DVT prophylaxis with Lovenox per order. I did call the patient's son who is a physician, Dr. Matt Viera at [phone] as per the patient' s request and details were discussed with him this evening. KHAI/MODL Voice ID: [id number] Report ID: [id number]
[2023-05-02 11:29] LABS: Blood Morphology Comment NOT SEEN (NOT SEEN); Platelet Estimate DECR; Smudge Cells PRESENT
[2023-05-02] MEDS ORDERED: NA CHLORIDE 0.9% 1,000 ML ONE (12:36)
--- NOTE | 2023-05-02 13:18 | PN ---
Date of Progress Note: 05/02/2023 Subjective: The patient was seen this morning for followup. Her daughter was with her at bedside. No headache, but she is still not able to hear anything out of her ears. Physical Examination: Vital Signs: Reviewed this morning, temperature 97.7, pulse 93, respiratory rate 17, blood pressure is elevated at 183/78 with oxygen saturation 97% on room air. HEENT: Unremarkable. Lungs: Clear to auscultation. Heart: Sounds normal. Abdomen: Soft. Bowel sounds normal. No guarding, rigidity, tenderness, distention. Extremities: No leg edema. Laboratory Data: White count 20.4, hemoglobin 10.7, platelets 147. Sodium 138, potassium 3.3, chlor roberta 102, bicarb 31, BUN 4, creatinine 0.58, glucose 135. Magnesium 2.2. Vancomycin trough level yes terday was 7.7. Impression: 1.Acute mastoiditis, bilateral. 2.Hypokalemia. 3.Hypertension. 4.Hyperlipidemia. 5.Type 2 diabetes mellitus. Plan: We will go ahead and continue current medication. Continue current antibiotics. Replace pota ssium per electrolyte replacement protocol. Start maintenance IV fluid since the patient is n.p.o. a nd will have surgery this afternoon and details and plan of treatment discussed with the patient and her daughter. I will see her tomorrow for followup. KHAI/MODL Voice ID: [id number] Report ID: [id number]
[2023-05-02] MEDS ORDERED: OFLOXACIN OPH 0.3%-5 ML BTL ONE (13:22)
[2023-05-02] MEDS ORDERED: OXYMETAZOLINE HCL 0.05% 15ML NAS ONE (13:23)
[2023-05-02] MEDS ORDERED: ACETAMINOPHEN 500 MG TAB ONE (13:57)
[2023-05-02] MEDS ORDERED: LIDOCAINE 1% MPF 5 ML VIAL ONE (13:59)
[2023-05-02] MEDS ORDERED: propofoL 200 MG/20 ML VIAL IV ONE (13:59)
[2023-05-02] MEDS ORDERED: ONDANSETRON 4 MG/2 ML VIAL ONE (13:59)
[2023-05-02] MEDS ORDERED: EPHEDRINE SULF 50 MG/ML VIAL ONE (14:45)
[2023-05-02] MEDS: VANCOMYCIN 1.5 GM in NA CHLORIDE 0.9% 500 ML IVPB SCH (16:21)
[2023-05-02] MEDS: OFLOXACIN OPH 0.3%-5 ML BTL OTIC SCH ×2 (21:00→21:11)
[2023-05-02] MEDS: JANUMET PO SCH (21:00)
[2023-05-02] MEDS: TRAZODONE 50 MG TABLET PO SCH (21:10)
[2023-05-03] MEDS: D5 0.45 NS 1,000 ML IV SCH (05:08)
[2023-05-03 06:59] LABS: Potassium 3.6 mEq/L (3.5-5.1)
[2023-05-03] MEDS: INSULIN REGULAR (HUMAN) 100 UNIT/ML SQ SCH ×4 (07:30→20:03)
[2023-05-03] MEDS: CEFTRIAXONE 1,000 MG in NA CHLORIDE 0.9% 50 ML IVPB SCH ×2 (08:18→20:03)
[2023-05-03] MEDS: DULOXETINE 20 MG CAP PO SCH (08:18)
[2023-05-03] MEDS: carvediloL 25 MG TAB PO SCH ×2 (08:19→20:02)
[2023-05-03] MEDS: LOSARTAN/HCTZ 50-12.5 PO SCH (08:19)
[2023-05-03] MEDS: ENOXAPARIN 40 MG/0.4 ML SQ SCH (08:19)
[2023-05-03] MEDS: OFLOXACIN OPH 0.3%-5 ML BTL OTIC SCH ×2 (08:20→20:03)
[2023-05-03] MEDS: ACETAMINOPHEN 500 MG TAB PO PRN (08:31)
[2023-05-03] MEDS ORDERED: POTASSIUM CL SA 10 MEQ TAB PO ONE (09:00)
--- NOTE | 2023-05-03 11:17 | OP ---
Date of Procedure: 05/02/2023 Surgeon: LOVELY KAPOOR Preoperative Diagnosis: Bilateral acute mastoiditis. Postoperative Diagnosis: Bilateral acute mastoiditis. Procedure: Bilateral myringotomy with tympanostomy tube insertion. Anesthesia: General mask anesthesia was administered. Estimated Blood Loss: Less than 5 mL. Specimens: None. Findings: Bilateral inflamed tympanic membranes with bulging and decreased light reflex, mucoid midd le ear effusion involving the left middle ear cavity with intact ossicles, no erosion, sero-mucoid ef fusion involving right middle ear with intact ossicles. Mild oozing of blood from the left tympanic membrane due to inflammation. Complications: None. Disposition: Stable. The patient tolerated the procedure well. Indications For Procedure: Patient is a pleasant 82-year-old female who presented to the emergency r oom with bilateral temporal bone pain extending into the ears and down the neck. Upon examination, p roque had evidence of mucoid middle ear effusion and CT scan demonstrated diffuse opacification invo lving both mastoid cavities. These were indications to bring the patient to operative suite for the above-mentioned procedure. She understood all questions were answered. Risks versus benefits, compl ications were explained in detail. Consent form was signed, which was placed in the chart. Description Of Procedure: Patient was transferred from the preoperative holding area to the operativ e suite by Department of Anesthesia, placed on the operating table supine, sedated in the normal [facility] ion. A 5 mm ear speculum was placed into the lateral ends of bilateral ear canals and a moderate marybeth unt of cerumen was removed with a curette. Canals were pink, firm without discharge; however, the dr winslow revealed evidence of inflammation and mucoid middle ear effusion. Incisions were made into the a nterior-inferior quadrants of bilateral tympanic membranes and a moderate amount of effusion was na gretta from bilateral middle ear cavities with a #5 Aguilar suction. Once the fluid was removed, Cricket b obbin tympanostomy tubes were inserted through the myringotomy sites with alligator forceps and repos itioned with a straight pick. Antibiotic drops were placed into the canals and cotton balls were jessica annelise into the meatal openings. Afrin was needed for the left ear as the tympanic membrane was signifi cantly inflamed and she had mild oozing of blood, but hemostasis was achieved with Afrin. She tolerated the procedure well, was discharged back up to the fourth floor. I recommend she stay o vernight and to continue to use ofloxacin otic drops twice daily for a total of 10 days. I also tien mmend outpatient treatment with levofloxacin 750 mg daily for 10 days. The patient will be seen in t outpatient setting within 2 weeks. JOSEFINA/GABRIEL Voice ID: [id number] Report ID: [id number]
[2023-05-03] MEDS: MORPHINE 2 MG/ML SYR IV PRN ×2 (16:12→20:09)
[2023-05-03] MEDS: VANCOMYCIN 1.5 GM in NA CHLORIDE 0.9% 500 ML IVPB SCH (16:52)
--- NOTE | 2023-05-03 18:05 | PN ---
Date of Progress Note: 05/03/2023 Subjective: The patient was seen this morning for followup. She had surgery done yesterday and over all she feels better since surgery. She has cotton plugs in both ears. Her pain is better in the ma stoid area post surgery. She is able to hear a little bit today when I was communicating with her an d was able to answer questions. Her hearing is still impaired, but at least she could hear a few wor ds today when I was talking to her. Objective: Vital Signs: Reviewed, maximum temperature 100.3 degrees Fahrenheit this morning. HEENT: Unremarkable. Lungs: Clear to auscultation. Heart: Sounds normal. Abdomen: Soft. Bowel sounds normal. No guarding, rigidity, tenderness, distention. Extremities: No leg edema. Impression: 1.Acute mastoiditis, bilateral. 2.Hypertension. 3.Type 2 diabetes mellitus. 4.Hyperlipidemia. Plan: We will go ahead and continue current antibiotics. She is on ceftriaxone and vancomycin. We will repeat blood work tomorrow. I will see how her vital signs are. Depending on her temperature, we will decide if we need to change antibiotics or not. Blood cultures are negative so far. Continu e current antihypertensive medication and continue to monitor blood pressure. If necessary, adjust antihypertensive medication. I will see he r tomorrow for followup. KHAI/MODL Voice ID: [id number] Report ID: [id number]
[2023-05-03] MEDS: TRAZODONE 50 MG TABLET PO SCH (20:02)
[2023-05-03] MEDS: JANUMET PO SCH (21:00)
[2023-05-04 00:50] VITALS: O2SAT 97
[2023-05-04] MEDS: D5 0.45 NS 1,000 ML IV SCH (00:55)
[2023-05-04 06:56] LABS: Absolute Lymphocytes (CBC) 15.8 K/uL (0.7-4.9); Hematocrit 32.2 % (36.0-45.0); Lymphocytes % 84.2 % (15.3-44.8); MCV 92.3 fL (80-100); MPV 6.7 fL (7.6-11.3); Platelets 185 thou/uL (152-406); RBC Red Blood Cell Count 3.49 M/uL (3.86-4.86)
[2023-05-04 07:13] LABS: Magnesium 2.2 mg/dL (1.6-2.4); Potassium 3.7 mEq/L (3.5-5.1)
[2023-05-04] MEDS: INSULIN REGULAR (HUMAN) 100 UNIT/ML SQ SCH (07:30)
[2023-05-04 09:34] LABS: Blood Morphology Comment NOT SEEN (NOT SEEN); Platelet Estimate ADEQ; White Blood Cell Scan OK (OK)
[2023-05-04] MEDS: ENOXAPARIN 40 MG/0.4 ML SQ SCH (10:24)
[2023-05-04] MEDS: OFLOXACIN OPH 0.3%-5 ML BTL OTIC SCH (10:24)
[2023-05-04] MEDS: LOSARTAN/HCTZ 50-12.5 PO SCH (10:25)
[2023-05-04] MEDS: DULOXETINE 20 MG CAP PO SCH (10:25)
[2023-05-04] MEDS: carvediloL 25 MG TAB PO SCH (10:25)
[2023-05-04] MEDS: ACETAMINOPHEN 500 MG TAB PO PRN (10:36)
[2023-05-04 12:01] VITALS: BP 160/69; TEMP 97.8
--- NOTE | 2023-05-04 12:27 | DS ---
Date of Discharge: 05/04/2023 Disposition: Discharged to go home. Physical Examination: HEENT: Unremarkable. Lungs: Clear to auscultation. Heart: Sounds normal. Abdomen: Soft. Bowel sounds normal. No guarding, rigidity, tenderness, distention. Extremities: No leg edema. Hospital Course: This is an 82-year-old pleasant female patient who was admitted to the hospital wit h complaints of fever, chills, and not able to hear. Please see dictated H and P for more informatio n. After the patient was evaluated in the emergency room, she was admitted to the hospital with bila teral acute mastoiditis. ENT consultation was obtained from Dr. Martinez. The patient received IV antib iotic which was ceftriaxone and vancomycin and Dr. Martinez did the surgery on her day before yesterday i n the form of bilateral myringotomy with tympanostomy tube placement in both ears. Postoperatively, the patient's condition has improved to the extent that she actually was able to hear somewhat compar ed to before. Her hearing is not back to normal, but at least she is able to hear somewhat ever sinc e the surgery. Dr. Martinez wants her on ofloxacin ear drops that she started after surgery and Levaquin 750 mg daily for 10 days. She will follow up with her on outpatient basis and she has instructed [facility] staff that the patient take her current ear drops home with her and if she runs out of it then the patient to call Dr. Martinez's office and she will provide her with a supply of ear drops. So I will not send that prescription to her pharmacy. The patient had one episode of fever, but after that, s he has not had any more fever. Her MRI of the brain and CAT scan of the brain did not show any acute intracranial changes. Showed evidence of bilateral mastoiditis. Final Diagnoses: 1.Acute mastoiditis. 2.Chronic lymphocytic leukemia. 3.Type 2 diabetes mellitus. 4.Hypertension. 5.Hyperlipidemia. 6.Gastroesophageal reflux disease. 7.Diverticulosis. 8.Anxiety. 9.Depression. 10.Anemia, unspecified. Discharge Medications And Instructions: 1.Continue all prior home medication. 2.Start following new medication, ofloxacin drops 0.3% instill 4 drops in both ears 2 adrienne es a day for 10 days. 3.Levofloxacin 750 mg take 1 tablet by mouth daily for 10 days. 4.Follow up at my office on 05/08/2023. 5.Follow up with Dr. Martinez in 1-2 weeks. Labs: Done during this hospitalization upon admission, white count 26, hemoglobin 12.3, platelets 16 9. Today white count 18.8, hemoglobin 10.9, platelets 185. Chemistry today, sodium 140, potassium 3 .7, chloride 104, bicarb 31, BUN 7, creatinine 0.71, glucose 171, magnesium 2.2. Upon admission, sod ium 135, potassium 3.7, chloride 101, bicarb 27, BUN 8, creatinine 0.83, glucose 130. Liver function tests unremarkable. KHAI/MODL Voice ID: [id number] Report ID: [id number]
[2023-05-04] MEDS ORDERED: VANCOMYCIN 1.5 GM in NA CHLORIDE 0.9% 500 ML IVPB SCH ×4 (13:00)
== END 2023-05-04 13:27 | disposition home or self-care (01) | DRG 144 ==
LOC: ER 15:56 → ERHOLD 17:36 → 4TH 22:38
PROVIDERS: ADMIT Hospitalist; ATTEND Internal Medicine
PROC: 099570Z Drainage of Right Middle Ear with Drainage Device, Via Natural or Artificial Opening (ICD-10-PCS; 2023-05-02)
PROC: 099670Z Drainage of Left Middle Ear with Drainage Device, Via Natural or Artificial Opening (ICD-10-PCS; principal; 2023-05-02 14:00)
DX: H70.003 Acute mastoiditis without complications, bilateral (principal); C91.10 Chronic lymphocytic leukemia of B-cell type not having achieved remission; H66.93 Otitis media, unspecified, bilateral; E11.9 Type 2 diabetes mellitus without complications; I10 Essential (primary) hypertension; E78.5 Hyperlipidemia, unspecified; F41.9 Anxiety disorder, unspecified; D64.9 Anemia, unspecified; E87.6 Hypokalemia; F32.A Depression, unspecified; E87.8 Other disorders of electrolyte and fluid balance, not elsewhere classified; K57.90 Diverticulosis of intestine, part unspecified, without perforation or abscess without bleeding; K21.9 Gastro-esophageal reflux disease without esophagitis; Z98.51 Tubal ligation status; Z79.84 Long term (current) use of oral hypoglycemic drugs; Z90.710 Acquired absence of both cervix and uterus; Z79.899 Other long term (current) drug therapy
CPT/HCPCS: 36415; 70450; 70551; 80048; 80076; 80202; 82947; 83735; 84132; 84484; 85025; 87040; 93005; 96374; 96375; 99285; J0692; J0696; J1170; J1650; J1815; J2001; J2270; J2405; J2704; J7030; J7040; J7050; J7799; J8597

== ENCOUNTER 2024-01-26 07:13 | Day surgery (SDC) | payer OTHER ==
[2024-01-26 08:05] LABS: MPV 7.6 fL (7.6-11.3); Platelets 95 thou/uL (152-406)
[2024-01-26 08:09] VITALS: BMI 27.9
[2024-01-26 08:18] LABS: PT Prothrombin Time 11.4 SECONDS (9.4-12.5); Protime INR 1.02
[2024-01-26] MEDS ORDERED: FLUMAZENIL 0.1 MG/ML (5 mL VIAL) IV ONE (08:46)
[2024-01-26] MEDS ORDERED: FENTANYL CITR 100 MCG/2 ML ONE (08:46)
[2024-01-26] MEDS ORDERED: NALOXONE HCL 2 MG/2 ML VIAL ONE (08:47)
[2024-01-26] MEDS ORDERED: MIDAZOLAM HCL 2 MG/2 ML INJ ONE (08:47)
[2024-01-26] MEDS ORDERED: NA CHLORIDE 0.9% 1,000 ML ONE (08:47)
[2024-01-26] MEDS ORDERED: ONDANSETRON 4 MG/2 ML VIAL ONE (08:48)
[2024-01-26 09:36] LABS: Absolute Basophils 0.2 K/uL (0-0.5); Absolute Eosinophils 0.1 K/uL (0-0.5); Absolute Lymphocytes (CBC) 29.8 K/uL (0.7-4.9); Absolute Monocytes 0.4 K/uL (0.1-1.3); Absolute Neutrophil 2.8 K/uL (1.8-8.0); Basophils % 0.5 % (0-1.3); Eosinophils % 0.2 % (0-4.4); Hemoglobin 8.4 g/dL (12.0-15.0); Lymphocytes % 89.7 % (15.3-44.8); MCH 32.4 pg (27.0-35.0); MCHC 32.1 g/dL (32.0-36.0); MCV 100.9 fL (80-100); Monocytes % 1.1 % (3.3-12.3); Neutrophils % 8.5 % (41.7-73.7); RBC Red Blood Cell Count 2.58 M/uL (3.86-4.86); Red Cell Distribution Width 18.2 % (12.1-15.2)
[2024-01-26 10:54] LABS: Atypical Lymphocytes 5 %; Band Neutrophils 1 % (0-1); Differential Total Cells Count 100; Eosinophils 1 % (0-3); Lymphocytes 84 % (15-42); Monocytes 1 % (0-10); Nucleated Red Blood Cells 1 /100WBC; Segmented Neutrophils 7 % (40-80)
[2024-01-26 10:55] LABS: Anisocytosis 1+; Blood Morphology Comment NOTED (NOT SEEN); Platelet Estimate DECR; Smudge Cells PRESENT
[2024-01-26 11:33] VITALS: BP 108/48; TEMP 98.4; O2SAT 97
[2024-01-26 11:37] LABS: Percent Reticulocyte Count 2.26 % (0.4-2.05)
[2024-01-26 12:03] LABS: Cytogenetics, Bone Marrow SENT; Flow Cytometry, Bone Marrow SENT
--- NOTE | 2024-01-26 14:27 | RAD REPORT ---
EXAMINATION: Bone Marrow Biopsy INDICATION: bone marrow biopsy Pre-procedure diagnosis: CLL. Lymph node swelling Post-procedure diagnosis: Same as above. COMPLICATIONS: No immediate complications. PROCEDURE DETAILS: Consent: Informed consent for the procedure was obtained following discussion of the risks, benefits and alternatives with the patient. Time-out was performed prior to the procedure. Sedation: Moderate sedation (conscious sedation) Administered by: Nurse, or other independent traine d observer, with level of consciousness and vital signs continuously monitored. Total sedation administered: 0.5 mL Versed and 50 mcg Fentanyl. Total intra-service sedation time: 14 minutes. Biopsy: The left buttock was prepped and draped in the usual sterile fashion. Initial scanning was pe rformed for localization of the iliac bones. Local anesthesia was administered. Under CT guidance, an 11 gauge bone biopsy needle was advanced to the left iliac bone and bone marrow aspiration as well as bone marrow core sampling was performed. Number of specimens/passes: A total of 11 mL bone marrow aspirate. 1 bone marrow core sample. Additional sampling description: Prompt clotting of the bone marrow aspirate. Preliminary assessment of sample adequacy: Not applicable. The biopsy needle was removed and a sterile dressing was applied. Post-biopsy imaging findings: No immediate complications seen. Additional Details: Estimated blood loss: Less than 10 mL. IMPRESSION: Technically successful CT-guided bone marrow aspiration/biopsy.
== END 2024-01-26 11:34 | disposition home or self-care (01) ==
LOC: DS 07:13
PROVIDERS: ATTEND Internal Medicine
PROC: 079T3ZX Drainage of Bone Marrow, Percutaneous Approach, Diagnostic (ICD-10-PCS; principal; 2024-01-26)
PROC: 07DR3ZX Extraction of Iliac Bone Marrow, Percutaneous Approach, Diagnostic (ICD-10-PCS; 2024-01-26)
DX: C91.10 Chronic lymphocytic leukemia of B-cell type not having achieved remission (principal); R63.4 Abnormal weight loss; D50.0 Iron deficiency anemia secondary to blood loss (chronic); I10 Essential (primary) hypertension
CPT/HCPCS: 77012; 85025; 36415; 88313; 85049; 85610; 85044; 88305; 88311; 85730; 38221; J2250; J3010; J7030; J2310; J2405

== ENCOUNTER 2024-03-10 07:58 | Day surgery (SDC) | payer OTHER ==
[2024-03-10] MEDS ORDERED: NA CHLORIDE 0.9% 250 ML ONE ×2 (08:32→10:59)
[2024-03-10 09:47] VITALS: BMI 27.8
[2024-03-10 14:08] VITALS: BP 132/54; TEMP 98.5; O2SAT 94
[2024-03-10 15:47] LABS: Hematocrit 28.6 % (36.0-45.0); Hemoglobin 9.2 g/dL (12.0-15.0)
== END 2024-03-10 15:45 | disposition home or self-care (01) ==
LOC: DS 07:58
PROVIDERS: ATTEND Internal Medicine
DX: D50.0 Iron deficiency anemia secondary to blood loss (chronic) (principal); C91.10 Chronic lymphocytic leukemia of B-cell type not having achieved remission; R63.4 Abnormal weight loss; I10 Essential (primary) hypertension
CPT/HCPCS: 36415; 86900; 86850; 86901; 86920 ×2; 85018; 85014; 36430; P9016 ×2; J7050 ×2

== ENCOUNTER 2025-01-20 08:20 | Day surgery (SDC) | payer OTHER ==
[2025-01-17 10:04] LABS: Absolute Lymphocytes (CBC) 9.0 K/uL (0.7-4.9); Hematocrit 40.6 % (36.0-45.0); Hemoglobin 13.5 g/dL (12.0-15.0); MCH 30.8 pg (27.0-35.0); MCHC 33.3 g/dL (32.0-36.0); MCV 92.5 fL (80-100); MPV 7.4 fL (7.6-11.3); Nucleated RBC Absolute Count 0.0 (0-0); Nucleated Red Blood Cells % 0.0 % (0-0); RBC Red Blood Cell Count 4.39 M/uL (3.86-4.86); White Blood Count 14.70 thou/uL (4.3-10.9)
[2025-01-17 10:24] LABS: Anion Gap 10.8 mEq/L (5.0-15.0); BUN Blood Urea Nitrogen 10.0 mg/dL (7-18); Glucose Level 182.0 mg/dL (74-106); Potassium 3.8 mEq/L (3.5-5.1)
[2025-01-17 13:47] LABS: Differential Total Cells Count 100; Segmented Neutrophils 25 % (40-80)
[2025-01-17 13:52] LABS: Blood Morphology Comment NOT SEEN (NOT SEEN)
[2025-01-20] MEDS: NA CHLORIDE 0.9% 1,000 ML ONE (08:55)
[2025-01-20] MEDS ORDERED: LIDOCAINE HCL/EPINEPHRINE 20 ML MDV ONE (10:15)
[2025-01-20] MEDS ORDERED: LIDOCAINE 2% MPF 5 ML VIAL ONE (10:40)
[2025-01-20] MEDS ORDERED: ONDANSETRON 4 MG/2 ML VIAL ONE (10:40)
[2025-01-20] MEDS ORDERED: FENTANYL CITR 100 MCG/2 ML ONE (10:41)
[2025-01-20] MEDS: CEFAZOLIN SODIUM 1 GM/VIAL ONE (10:56)
[2025-01-20] MEDS: OXYMETAZOLINE HCL 0.05% 30ML NAS ONE (11:07)
[2025-01-20] MEDS: OFLOXACIN OPH 0.3%-5 ML BTL ONE (11:08)
[2025-01-20 12:38] VITALS: BP 140/59; TEMP 97.1; O2SAT 94
--- NOTE | 2025-01-24 19:55 | OP ---
Date of Procedure: 01/20/2025 Surgeon: Shameka Martinez Preoperative Diagnoses: 1. 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 2. Complication of retained right ear tympanostomy tube. Postoperative Diagnoses: 1. 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 2. Complication of retained right ear tympanostomy tube. Procedures: 1. Removal of Cricket-Bobbin tympanostomy tube from right ear canal. 2. Excision of right ear canal granuloma. 3. Myringotomy with T-Tube placement right ear. Anesthesia: General LMA anesthesia was administered. Specimens: Right ear canal granuloma with imbedded Cricket-Bobbin tympanostomy tube submitted. Estimated Blood Loss: Less than 2 mL. Findings: Large right ear canal granuloma with imbedded fluoroplastic tympanostomy tube. Right ear serous middle ear effusion. Complications: None. Disposition: Stable. The patient tolerated the procedure well. Indications For Procedure: The patient is a pleasant 84-year-old female with a chronically draining right ear. Examination in my office revealed a rather large mucosal granuloma with an embedded tympa nostomy tube that was chronically draining despite oral and topical antibiotics. These were indicati ons to bring the patient to operative suite for the above-mentioned procedure. She understood, all q uestions were answered. Risks versus benefits, complications were explained in detail and a consent form was signed, was placed in the chart. Description Of Procedure: The patient was transferred from the preoperative holding area to the oper ative suite by Department of Anesthesia, placed on the operative table supine, and sedated in normal fashion. I briefly looked at the left ear utilizing a Zeiss microscope with an auto-focus/zoom lens. A 5 mm speculum was placed in the lateral end of the left ear canal. There was no cerumen. Canal was pink, firm, intact, and the eardrum was intact with no evidence of middle ear effusion. I then p laced a 5 mm ear speculum into the lateral ends of the right ear canal and a large granuloma was na gretta with Alligator forceps. It was handed off the field and submitted to pathology. I then made an incision into the anterior inferior quadrant of the right tympanic membrane and a Capone T-tube was inserted into the myringotomy site with Alligator forceps and repositioned with a straight pick. A small amount of serous effusion was removed from the middle ear space with a #3 suction. There was s ome blood. I then coated Gel-Foam with Afrin and ofloxacin drops and placed around the newly placed T tube and at the site of the prior myringotomy, which was just posterior to the current site. I the n instilled ofloxacin drops and a cotton ball was placed in the meatal opening. She tolerated the procedure well and will be discharged home on antibiotic ear drops to use twice jairo ly, and will follow up in 2-4 weeks or sooner if needed. JOSEFINA/GABRIEL Voice ID: [id number] Report ID: [id number]
== END 2025-01-20 12:25 | disposition home or self-care (01) ==
LOC: OR 08:20
PROVIDERS: ATTEND Otolaryngology Facial Plastic Surgery
PROC: 099570Z Drainage of Right Middle Ear with Drainage Device, Via Natural or Artificial Opening (ICD-10-PCS; 2025-01-20)
PROC: 09B0XZZ Excision of Right External Ear, External Approach (ICD-10-PCS; 2025-01-20)
PROC: 09P770Z Removal of Drainage Device from Right Tympanic Membrane, Via Natural or Artificial Opening (ICD-10-PCS; principal; 2025-01-20 09:30)
DX: D23.20 Other benign neoplasm of skin of unspecified ear and external auricular canal (principal); H65.31 Chronic mucoid otitis media, right ear; H60.61 Unspecified chronic otitis externa, right ear
CPT/HCPCS: 69436; 69424; 69145; 93005; 85025; 80048; 36415; 82947 ×2; 88305; J2704; J2003; J3010; J2405; J7030; J0690